=== PATIENT | female | born 1955 | race Caucasian/White ===

== ENCOUNTER 2016-09-11 09:20 | Day surgery (SDC) | payer BC ==
[~2016-09-11 09:20] MED LIST: PROPOFOL INJ 200 MG/20 ML VIAL IV ONE
[2016-09-11 11:04] VITALS: BP 115/60
--- NOTE | 2016-09-11 12:43 | Operative Report ---
Operative Report DATE OF SURGERY: 09/11/16 Operative Report: The risks, benefits and alternatives of the procedure including risks of bleeding, perforation requiring surgery are explained to the patient in detail and informed consent is obtained. Patient is taken back to the endoscopy suite and placed in a left lateral decubital position. Timeout is called. Propofol medications administered. A rectal examination was done which did not reveal any masses, tears or fissures. An Olympus videoscope was inserted into the patient's rectum. Keeping the lumen in site at all times the scope was then gradually advanced all the way to the cecum. The cecum as identified by the usual anatomical landmarks of the ileocecal valve as well as the appendiceal office. Photodocumentation was obtained. Prep is good. The scope was then sequentially pulled back via the rest segments of the colon including the ascending colon, hepatic flexure, transverse colon, splenic flexure, descending colon and finally into the rectosigmoid colon. Retroflexion maneuvers performed. Following the completion of the colonoscopy EGD is performed to follow up for previous ulcer in the stomach. The risks benefits and alternatives of the procedure explained to the patient in detail and informed consent is obtained that GIF Olympus video scope was inserted into the patient's mouth and hypopharynx the esophagus is identified intubated and insufflated the scope was then advanced through the esophagus stomach and duodenum retroflexion maneuver is done the esophagus stomach and first and second portions of the duodenum examined PREOPERATIVE DIAGNOSIS: Gastric ulcer. 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 Healing anastomotic ulcer no further bleeding but Endo Clip still present. Patent small bowel loops. Ascending colon polyp is removed via biopsy forceps. Mild diverticulosis OPERATION: EGD with ablation. Colonoscopy with biopsy SURGEON: TOMMY WATT ANESTHESIA: LMAC TISSUE REMOVED OR ALTERED: Ascending colon polyp retrieved COMPLICATIONS: None. ESTIMATED BLOOD LOSS: none. INTRAOPERATIVE FINDINGS: Curtis's esophagus status post ablation. Status post gastric bypass with anastomotic bleeding ulcer in the past now has resolved but Endo Clip still present. Small bowel loops are normal. Ascending colon polyp. Reticulosis PROCEDURE: Patient tolerated the procedure well. No immediate postprocedure complications are noted. Patient is discharged in good condition. Date of discharge 09/11/2016. Discharge diet: Regular. Discharge activity: Regular. Patient will need follow-up upper endoscopy to document eradication of Curtis' s. Colon surveillance in 3-5 years. Patient does have a 2-3 week follow-up to discuss findings. Patient is instructed to go to the emergency room or call the office should there be any further problems or questions Await on biopsies
== END 2016-09-11 11:05 | disposition home or self-care (01) ==
LOC: END 09:20
PROVIDERS: ATTEND Internal Medicine Gastroenterology
PROC: 0DBK8ZX Excision of Ascending Colon, Via Natural or Artificial Opening Endoscopic, Diagnostic (ICD-10-PCS; principal; 2016-09-11 11:30)
PROC: 0D558ZZ Destruction of Esophagus, Via Natural or Artificial Opening Endoscopic (ICD-10-PCS; 2016-09-11 11:30)
DX: D12.2 Benign neoplasm of ascending colon (principal); K57.30 Diverticulosis of large intestine without perforation or abscess without bleeding; K22.70 Barrett's esophagus without dysplasia; Z87.11 Personal history of peptic ulcer disease; D64.9 Anemia, unspecified; E11.9 Type 2 diabetes mellitus without complications; I10 Essential (primary) hypertension; E78.00 Pure hypercholesterolemia, unspecified; E07.9 Disorder of thyroid, unspecified; Z98.84 Bariatric surgery status; Z79.899 Other long term (current) drug therapy
CPT/HCPCS: 43270; 45380; 82962; 88305 ×2; J2704; 740

== ENCOUNTER 2016-11-05 09:44 | Emergency (ER) | payer BC ==
[2016-11-05] MEDS ORDERED: PANTOPRAZOLE SODIUM 40 MG VIAL IV ONE (09:48)
[2016-11-05] MEDS ORDERED: PANTOPRAZOLE SODIUM 40 MG VIAL IV PRN (09:56)
[2016-11-05 10:15] LABS: ABSOLUTE BASOPHILS # (AUTO) 0.1 10^3/uL (0.0-0.2); ABSOLUTE EOSINOPHILS # (AUTO) 0.1 10^3/uL (0.0-0.6); ABSOLUTE LYMPHOCYTES (AUTO) 1.4 10^3/uL (0.5-4.7); ABSOLUTE MONOCYTES (AUTO) 0.7 10^3/uL (0.1-1.4); ABSOLUTE NEUT (AUTO) 5.2 10^3/uL (1.7-8.2); BASOPHILS % (AUTO) 0.7 % (0-2); EOSINOPHILS % (AUTO) 1.8 % (0-6); HEMOGLOBIN 9.9 g/dL (12.0-15.5); HGB HCT DIFFERENCE -0.3; LYMPHOCYTES % (AUTO) 18.9 % (13-45); MEAN CORPUSCULAR HEMOGLOBIN 27.2 pg (27.0-33.4); MEAN CORPUSCULAR VOLUME 82 fl (80-97); MONOCYTES % (AUTO) 9.5 % (3-13); RED BLOOD COUNT 3.65 10^6/uL (3.72-5.28); RED CELL DISTRIBUTION WIDTH 14.8 % (11.5-14.0); SEGMENTED NEUTROPHILS % (AUTO) 69.1 % (42-78); WHITE BLOOD COUNT 7.5 10^3/uL (4.0-10.5)
[2016-11-05 10:40] LABS: ALANINE AMINOTRANSFERASE 40 U/L (9-52); ALBUMIN 3.3 g/dL (3.5-5.0); ALKALINE PHOSPHATASE 55 U/L (38-126); ANION GAP 10 (5-19); ASPARTATE AMINO TRANSFERASE 30 U/L (14-36); BILIRUBIN,TOTAL 0.4 mg/dL (0.2-1.3); BLOOD UREA NITROGEN 31 mg/dL (7-20); CALCIUM 8.7 mg/dL (8.4-10.2); CARBON DIOXIDE 26 mmol/L (22-30); CHLORIDE 107 mmol/L (98-107); CREATININE RESULT 0.62 mg/dL (0.52-1.25); GLUCOSE 200 mg/dL (75-110); POTASSIUM 4.4 mmol/L (3.6-5.0); SODIUM 142.8 mmol/L (137-145); TOTAL PROTEIN 5.4 g/dL (6.3-8.2)
[2016-11-05 11:43] LABS: PROTHROMBIN TIME 13.6 SEC (11.4-15.4)
[2016-11-05 11:44] LABS: PARTIAL THROMBOPLASTIN TIME 22.8 SEC (23.5-35.8)
[2016-11-05 11:46] LABS: APPEARANCE,URINE CLEAR; BILIRUBIN,URINE NEGATIVE (NEGATIVE); GLUCOSE, URINE NEGATIVE (NEGATIVE); KETONES,URINE NEGATIVE (NEGATIVE); LEUKOCYTE ESTERASE,URINE NEGATIVE (NEGATIVE); NITRITE,URINE NEGATIVE (NEGATIVE); PROTEIN,URINE NEGATIVE (NEGATIVE); URINE SPECIFIC GRAVITY 1.047; UROBILINOGEN,URINE NEGATIVE mg/dL (<2.0)
[2016-11-05] MEDS ORDERED: NORMAL SALINE 1000 ML 1,000 ML IV ONE (12:13)
[2016-11-05] MEDS ORDERED: ONDANSETRON HCL INJ/PF 4 MG/2 ML SDV IV PRN (12:51)
[2016-11-05] MEDS ORDERED: MORPHINE SULFATE 10 MG/ML INJ IV PRN (12:51)
[2016-11-05] MEDS ORDERED: ACETAMINOPHEN 325 MG TABLET PO PRN (12:52)
--- NOTE | 2016-11-05 13:38 | ER Document Report ---
ED General - General Chief Complaint: GI Bleeding Stated Complaint: ABDOMINAL PAIN TRAVEL OUTSIDE OF THE [place] IN LAST 30 DAYS: No - HPI Patient complains to provider of: vomiting blood dark stools Notes: Patient is coming in for vomiting blood and dark stools states dark stools 3. 24 hours with vomiting approximately half cup to one cup of bright red blood no blood clots. Otherwise patient denies any dizziness fevers. Patient states abdominal pain sharp boxer 25 hours prior to arrival now currently dull abdominal pain. Patient does admit to a history of Lydia-en-Y surgery also recent admission for GI bleeding at which time she had a EGD performed showing a bleeding ulcer at anastomosis site. Patient currently mildly pale looking otherwise stable - Related Data Allergies/Adverse Reactions: coconut Allergy (Intermediate, Verified 09/11/16 09:38) THROAT SWELLING, HARD TO BREATHE Past Medical History - Social History Smoking Status: Never Smoker Chew tobacco use (# tins/day): No Frequency of alcohol use: Social Drug Abuse: None Family History: CAD, CVA, DM, Hyperlipidemia, Hypertension, Malignancy, Thyroid Disfunction Patient has suicidal ideation: No Patient has homicidal ideation: No - Past Medical History Cardiac Medical History: Reports: Hx Coronary Artery Disease, Hx Heart Attack - 2012, Hx Hypercholesterolemia, Hx Hypertension Pulmonary Medical History: Reports: Hx Bronchitis Denies: Hx Asthma, Hx COPD, Hx Pneumonia Neurological Medical History: Denies: Hx Cerebrovascular Accident, Hx Seizures Endocrine Medical History: Reports: Hx Diabetes Mellitus Type 1, Hx Diabetes Mellitus Type 2 Renal/ Medical History: Denies: Hx Peritoneal Dialysis GI Medical History: Reports: Hx Gastroesophageal Reflux Disease Musculoskeltal Medical History: Denies Hx Arthritis Psychiatric Medical History: Reports: Hx Depression Past Surgical History: Reports: Hx Bowel Surgery - gastric bypass, Hx Cardiac Catheterization, Hx Cholecystectomy, Hx Coronary Stent - 2001, Hx Gastric Bypass Surgery, Hx Tubal Ligation - Immunizations Immunizations up to date: Yes Hx Diphtheria, Pertussis, Tetanus Vaccination: Yes Hx Pneumococcal Vaccination: 08/27/09 Review of Systems - Review of Systems Constitutional: No symptoms reported EENT: No symptoms reported Cardiovascular: No symptoms reported Respiratory: No symptoms reported Gastrointestinal: Other - Dark stools vomiting blood Genitourinary: No symptoms reported Female Genitourinary: No symptoms reported Musculoskeletal: No symptoms reported Skin: No symptoms reported Hematologic/Lymphatic: No symptoms reported Neurological/Psychological: No symptoms reported Physical Exam - Vital signs Vitals: Temp Pulse Resp BP Pulse Ox 97.7 F 69 20 141/80 H 99 11/05/16 09:52 11/05/16 09:52 11/05/16 09:52 11/05/16 09:52 11/05/16 09:52 Interpretation: Normal - General General appearance: Appears well, Alert - HEENT Head: Normocephalic, Atraumatic Eyes: Normal Pupils: PERRL - Respiratory Respiratory status: No respiratory distress Chest status: Nontender Breath sounds: Normal Chest palpation: Normal - Cardiovascular Rhythm: Regular Heart sounds: Normal auscultation Murmur: No - Abdominal Inspection: Normal Distension: No distension Bowel sounds: Normal Tenderness: Nontender Organomegaly: No organomegaly - Rectal Stool: Heme positive, Black - Back Back: Normal, Nontender - Extremities General upper extremity: Normal inspection, Nontender, Normal color, Normal ROM , Normal temperature General lower extremity: Normal inspection, Nontender, Normal color, Normal ROM , Normal temperature, Normal weight bearing. No: Namita's sign - Neurological Neuro grossly intact: Yes Cognition: Normal Orientation: AAOx4 [place] Coma Scale Eye Opening: Spontaneous [place] Coma Scale Verbal: Oriented Janina Coma Scale Motor: Obeys Commands [place] Coma Scale Total: 15 Speech: Normal Motor strength normal: LUE, RUE, LLE, RLE Sensory: Normal - Psychological Associated symptoms: Normal affect, Normal mood - Skin Skin Temperature: Warm Skin Moisture: Dry Skin Color: Normal Course - Re-evaluation Re-evalutation: 11/05/16 13:[address] Kolb of [facility]. Patient otherwise hemoglobin lab with stable. Patient was started on Protonix drip. At this time will continue to monitor H&H's. Patient was accepted for transfer. Patient previous EGD reports were performed these will be printed out and placed in the patient's chart. The initial EGD showing a ulcer at the anastomosis site with the Endo Clip unsuccessful placed by surgery with resolution of bleeding after injection of epinephrine does mention possible need for embolization if rebleeding occurs. CT scan shows no signs of free air signs of perforation - Vital Signs Vital signs: Temp Pulse Resp BP Pulse Ox 97.7 F 69 12 129/68 H 99 11/05/16 09:52 11/05/16 09:52 11/05/16 12:01 11/05/16 12:01 11/05/16 12:01 - Laboratory Result Diagrams: 11/05/16 09:50 11/05/16 09:50 Laboratory results interpreted by me: 11/05/16 11/05/16 11/05/16 09:50 09:50 09:50 RBC 3.65 L Hgb 9.9 L Hct 30.0 L RDW 14.8 H APTT 22.8 L BUN 31 H Glucose 200 H Total Protein 5.4 L Albumin 3.3 L Critical Care Note - Critical Care Note Total time excluding time spent on procedures (mins): 35 Comments: Multiple evaluation patient with GI bleed Discharge - Discharge Clinical Impression: H/O gastric bypass, Melena, Bleeding acute gastric ulcer Condition: Good Disposition: [facility]
[2016-11-05 15:38] LABS: HEMATOCRIT 28.9 % (36.0-47.0); HEMOGLOBIN 9.6 g/dL (12.0-15.5); HGB HCT DIFFERENCE -0.1; MEAN CORPUSCULAR HGB CONC 33.2 g/dL (32.0-36.0); MEAN CORPUSCULAR VOLUME 81 fl (80-97); RED BLOOD COUNT 3.55 10^6/uL (3.72-5.28); RED CELL DISTRIBUTION WIDTH 14.8 % (11.5-14.0); WHITE BLOOD COUNT 6.6 10^3/uL (4.0-10.5)
[2016-11-05] MEDS ORDERED: CARVEDILOL 12.5 MG TABLET PO ONE (15:41)
[2016-11-05] MEDS ORDERED: LISINOPRIL 10 MG TABLET PO ONE (15:43)
[2016-11-05] MEDS ORDERED: LEVOTHYROXINE SODIUM 0.1 MG TABLET PO ONE (15:44)
--- NOTE | 2016-11-05 20:09 | EKG REPORT ---
SEVERITY:- NORMAL ECG - SINUS RHYTHM : Confirmed by: Rosalia Daniels 05-Nov-2016 20:09:19
[2016-11-05 20:10] LABS: ABSOLUTE EOSINOPHILS # (AUTO) 0.1 10^3/uL (0.0-0.6); ABSOLUTE LYMPHOCYTES (AUTO) 1.3 10^3/uL (0.5-4.7); ABSOLUTE MONOCYTES (AUTO) 0.5 10^3/uL (0.1-1.4); ABSOLUTE NEUT (AUTO) 3.3 10^3/uL (1.7-8.2); BASOPHILS % (AUTO) 0.5 % (0-2); HEMATOCRIT 27.2 % (36.0-47.0); HEMOGLOBIN 8.9 g/dL (12.0-15.5); HGB HCT DIFFERENCE -0.5; LYMPHOCYTES % (AUTO) 25.3 % (13-45); MEAN CORPUSCULAR HEMOGLOBIN 26.7 pg (27.0-33.4); MEAN CORPUSCULAR HGB CONC 32.6 g/dL (32.0-36.0); MEAN CORPUSCULAR VOLUME 82 fl (80-97); MONOCYTES % (AUTO) 10.2 % (3-13); RED BLOOD COUNT 3.33 10^6/uL (3.72-5.28); RED CELL DISTRIBUTION WIDTH 14.7 % (11.5-14.0); WHITE BLOOD COUNT 5.2 10^3/uL (4.0-10.5)
[2016-11-06] MEDS ORDERED: PANTOPRAZOLE SODIUM 40 MG VIAL IV PRN (01:27)
[2016-11-06] MEDS ORDERED: NORMAL SALINE 1000 ML 1,000 ML IV ONE (01:28)
--- NOTE | 2016-11-06 02:18 | ER Document Report ---
Doctor's Note Notes: 11/06/16 02:15 This 61-year-old female with upper GI bleed was turned over to me about 1500 today. She has remained stable throughout my shift. Serial CBCs showed a very slight downward trend in her hemoglobin. An H&H was ordered for 2:00 AM which is 6 hours after the last one. I do not believe it has been drawn yet. IV fluids were started as she remains nothing by mouth. An additional Protonix drip was ordered to follow the first one. At this point damichaela reports they still do not have a bed for this patient. Patient's care is turned over to Dr. Gomez at this time.
[2016-11-06 03:59] LABS: HEMATOCRIT 25.7 % (36.0-47.0); HEMOGLOBIN 8.5 g/dL (12.0-15.5); HGB HCT DIFFERENCE -0.2; MEAN CORPUSCULAR HEMOGLOBIN 27.3 pg (27.0-33.4); MEAN CORPUSCULAR HGB CONC 32.9 g/dL (32.0-36.0); MEAN CORPUSCULAR VOLUME 83 fl (80-97); RED BLOOD COUNT 3.11 10^6/uL (3.72-5.28); WHITE BLOOD COUNT 4.4 10^3/uL (4.0-10.5)
[2016-11-06] MEDS ORDERED: DEXTROSE 5%-1/2 NORMAL SALINE 1,000 ML IV ONE (11:00)
[2016-11-06 11:16] LABS: ABSOLUTE EOSINOPHILS # (AUTO) 0.1 10^3/uL (0.0-0.6); ABSOLUTE LYMPHOCYTES (AUTO) 1.1 10^3/uL (0.5-4.7); ABSOLUTE MONOCYTES (AUTO) 0.4 10^3/uL (0.1-1.4); ABSOLUTE NEUT (AUTO) 2.2 10^3/uL (1.7-8.2); BASOPHILS % (AUTO) 0.9 % (0-2); EOSINOPHILS % (AUTO) 2.5 % (0-6); HEMATOCRIT 26.3 % (36.0-47.0); HEMOGLOBIN 8.7 g/dL (12.0-15.5); HGB HCT DIFFERENCE -0.2; LYMPHOCYTES % (AUTO) 29.5 % (13-45); MEAN CORPUSCULAR VOLUME 82 fl (80-97); MONOCYTES % (AUTO) 9.5 % (3-13); RED CELL DISTRIBUTION WIDTH 14.9 % (11.5-14.0); SEGMENTED NEUTROPHILS % (AUTO) 57.6 % (42-78); WHITE BLOOD COUNT 3.8 10^3/uL (4.0-10.5)
[2016-11-06 11:32] LABS: ANION GAP 8 (5-19); BLOOD UREA NITROGEN 17 mg/dL (7-20); CALCIUM 8.7 mg/dL (8.4-10.2); CARBON DIOXIDE 23 mmol/L (22-30); CHLORIDE 109 mmol/L (98-107); CREATININE RESULT 0.51 mg/dL (0.52-1.25); GLUCOSE 105 mg/dL (75-110); POTASSIUM 3.3 mmol/L (3.6-5.0)
[2016-11-06] MEDS: PANTOPRAZOLE SODIUM 40 MG VIAL IV PRN ×2 (11:42→23:15)
[2016-11-06] MEDS ORDERED: POTASSIUM CHLORIDE 10 MEQ TABLET.SA PO ONE (14:06)
--- NOTE | 2016-11-06 17:07 | ER Document Report ---
Doctor's Note Notes: 11/06/16 17:04 Patient was reevaluated multiple times today. Patient remained stable. Blood pressure heart rate remained stable. Patient's abdomen still nontender no signs of surgical process. Patient continues to have ice chips. Hemoglobin at this time has stabilized no need for transfusion. I did discuss with [facility]. Patient more likely will be waiting for another 24 hours for transfer. Patient is still requesting to only be transferred to [facility]. I did discuss with patient possibility of being seen by GI tomorrow as that I have been told that we have GI on the . Will continue to repeat CBCs. Patient will continue on Protonix drip. Patient will also continue on D5 half-normal saline
[2016-11-06 19:52] LABS: ANION GAP 6 (5-19); BLOOD UREA NITROGEN 10 mg/dL (7-20); CALCIUM 8.7 mg/dL (8.4-10.2); CARBON DIOXIDE 23 mmol/L (22-30); CHLORIDE 108 mmol/L (98-107); CREATININE RESULT 0.52 mg/dL (0.52-1.25); GLUCOSE 120 mg/dL (75-110); POTASSIUM 3.5 mmol/L (3.6-5.0)
[2016-11-06 19:57] LABS: HEMOGLOBIN 8.5 g/dL (12.0-15.5); HGB HCT DIFFERENCE 0.5; MEAN CORPUSCULAR HEMOGLOBIN 27.4 pg (27.0-33.4); MEAN CORPUSCULAR HGB CONC 33.8 g/dL (32.0-36.0); MEAN CORPUSCULAR VOLUME 81 fl (80-97); RED BLOOD COUNT 3.09 10^6/uL (3.72-5.28); RED CELL DISTRIBUTION WIDTH 14.8 % (11.5-14.0); WHITE BLOOD COUNT 3.9 10^3/uL (4.0-10.5)
[2016-11-07 00:29] LABS: HEMATOCRIT 24.1 % (36.0-47.0); HEMOGLOBIN 8.2 g/dL (12.0-15.5); HGB HCT DIFFERENCE 0.5; MEAN CORPUSCULAR HEMOGLOBIN 27.3 pg (27.0-33.4); MEAN CORPUSCULAR VOLUME 80 fl (80-97); RED CELL DISTRIBUTION WIDTH 14.6 % (11.5-14.0); WHITE BLOOD COUNT 3.4 10^3/uL (4.0-10.5)
[2016-11-07] MEDS ORDERED: LEVOTHYROXINE SODIUM 0.088 MG TABLET PO SCH (06:00)
--- NOTE | 2016-11-07 06:54 | ER Document Report ---
Doctor's Note Notes: 11/07/16 06:53 I reevaluated the patient. She continues to look well and had no further complaints. She continues to not have any further vomiting of blood. Her stool has cleared over last 12 hours. Her hemoglobin has remained stable. They 're still not available at [facility]. We do have a GI physician, coming on this morning. I will call him to see if he is able to perform evaluation and possible endoscopy here so that patient no longer has to wait for transfer. 11/07/16 07:36 I was able to get in touch with Dr. Mora, patient's GI physician. He says that the patient's ankle has remained stable and she's had no further vomiting of blood and her stools have returned to normal color than she is probably stable to be discharged and he would follow her up very closely in his office. He would talk to her about arranging for outpatient scope with the specialist in [place] to look at her anastomosis further. I did talk to the patient about this. I did give her the option of possibly going home versus staying in the ER longer to continue to wait for a bed at [facility]. Again there is no indication that we will be getting a bed at [facility] anytime soon. Patient says that she does not want to wait any longer and is agreeable with plan to follow-up with Dr. Mora. She agrees to return to the ER immediately if she has any recurrent vomiting of blood, any dark stools, any pain, or any further concerns. She strongly encouraged to avoid all foods that could cause potential irritation to the stomach lining such as wine, coffee, tea, spicy foods. She's encouraged to follow a very bland diet. I informed her to continue to take the Prilosec. Patient's vital signs are completely normal. Her hemoglobin has remained stable. She looks very well and exam. She does want to go home at this time. I do think this is okay. I informed her to call Dr. Mora's office this morning. She is agreeable to plan will be discharged home. Dictation of this chart was performed using voice recognition software; therefore, there may be some unintended grammatical errors.
[2016-11-07] MEDS ORDERED: LEVOTHYROXINE SODIUM 0.088 MG TABLET ONE (07:07)
[2016-11-07 08:37] VITALS: BP 149/61
[2016-11-07] MEDS ORDERED: ISOSORBIDE MONONITRATE 30 MG TAB.ER.24H PO SCH (10:00)
[2016-11-07] MEDS ORDERED: ESCITALOPRAM OXALATE 10 MG TABLET PO SCH (10:00)
[2016-11-07] MEDS ORDERED: CARVEDILOL 12.5 MG TABLET PO SCH (10:00)
[2016-11-07] MEDS ORDERED: MULTIVITAMIN TABLET PO SCH (10:00)
[2016-11-07] MEDS ORDERED: FERROUS SULFATE 325 MG TABLET PO SCH (10:00)
[2016-11-07] MEDS ORDERED: LISINOPRIL 10 MG TABLET PO SCH (10:00)
[2016-11-07] MEDS ORDERED: CYANOCOBALAMIN (VITAMIN B-12) 1,000 MCG TABLET PO SCH (10:00)
[2016-11-07] MEDS ORDERED: ATORVASTATIN CALCIUM 40 MG TABLET PO SCH (22:00)
== END 2016-11-07 08:32 | disposition home or self-care (01) ==
LOC: ER 09:44
DX: K25.0 Acute gastric ulcer with hemorrhage (principal); K92.1 Melena; Z98.84 Bariatric surgery status
CPT/HCPCS: 93005; 96376; 99291; 96365; 96366; 86900; 86901; 36415; 86850; 83690; 85025; 85027; 85610; 85730; 82272; 80048; 80053; 81001; 74177; 93010; S0164 ×2; J7030 ×2

== ENCOUNTER → 2016-11-20 | Outpatient (CLI) | payer BC ==
--- NOTE | 2016-11-20 16:04 | EKG REPORT ---
SEVERITY:- NORMAL ECG - SINUS RHYTHM : Confirmed by: Rosalia Daniels 20-Nov-2016 16:03:38
[2016-11-20 16:47] LABS: ABSOLUTE EOSINOPHILS # (AUTO) 0.1 10^3/uL (0.0-0.6); ABSOLUTE MONOCYTES (AUTO) 0.7 10^3/uL (0.1-1.4); ABSOLUTE NEUT (AUTO) 3.7 10^3/uL (1.7-8.2); BASOPHILS % (AUTO) 0.6 % (0-2); EOSINOPHILS % (AUTO) 2.1 % (0-6); HEMATOCRIT 31.5 % (36.0-47.0); HEMOGLOBIN 10.5 g/dL (12.0-15.5); LYMPHOCYTES % (AUTO) 17.4 % (13-45); MEAN CORPUSCULAR HEMOGLOBIN 27.6 pg (27.0-33.4); MEAN CORPUSCULAR HGB CONC 33.4 g/dL (32.0-36.0); MEAN CORPUSCULAR VOLUME 83 fl (80-97); MONOCYTES % (AUTO) 12.5 % (3-13); RED BLOOD COUNT 3.81 10^6/uL (3.72-5.28); SEGMENTED NEUTROPHILS % (AUTO) 67.4 % (42-78); WHITE BLOOD COUNT 5.5 10^3/uL (4.0-10.5)
[2016-11-20 17:09] LABS: ALANINE AMINOTRANSFERASE 31 U/L (9-52); ALKALINE PHOSPHATASE 74 U/L (38-126); ANION GAP 15 (5-19); ASPARTATE AMINO TRANSFERASE 27 U/L (14-36); BILIRUBIN,DIRECT 0.2 mg/dL (0.0-0.4); BILIRUBIN,TOTAL 0.7 mg/dL (0.2-1.3); BLOOD UREA NITROGEN 17 mg/dL (7-20); CALCIUM 9.4 mg/dL (8.4-10.2); CARBON DIOXIDE 27 mmol/L (22-30); CHLORIDE 102 mmol/L (98-107); CREATININE RESULT 0.59 mg/dL (0.52-1.25); GLUCOSE 103 mg/dL (75-110); SODIUM 143.5 mmol/L (137-145); TOTAL PROTEIN 6.4 g/dL (6.3-8.2)
== END ==
LOC: OD 15:12
PROVIDERS: ATTEND Orthopaedic Surgery
DX: C11.2 Malignant neoplasm of lateral wall of nasopharynx (principal); I10 Essential (primary) hypertension
CPT/HCPCS: 36415; 71020; 80053; 85025; 87070; 93005; 93010

== ENCOUNTER 2016-12-25 06:50 | Day surgery (SDC) | payer BC ==
[2016-12-25] MEDS ORDERED: PROPOFOL INJ 200 MG/20 ML VIAL IV ONE (07:20)
[2016-12-25 08:58] VITALS: BP 152/73
--- NOTE | 2016-12-25 11:34 | Operative Report ---
Operative Report DATE OF SURGERY: 12/25/16 Operative Report: The risks benefits and alternatives of the procedure explained to the patient in detail and informed consent is obtained that GIF Olympus video scope was inserted into the patient's mouth and hypopharynx the esophagus is identified intubated and insufflated the scope was then advanced through the esophagus stomach and duodenum retroflexion maneuver is done the esophagus stomach and first and second portions of the duodenum examined PREOPERATIVE DIAGNOSIS: History of previous anastomotic bleeding ulcer. Curtis 's esophagus was previous treatment POSTOPERATIVE DIAGNOSIS: Healed anastomotic ulcer. afferent and efferent loops are normal. Small island of Curtis's esophagus status post ablation OPERATION: EGD with ablation SURGEON: TOMMY WATT ANESTHESIA: LMAC TISSUE REMOVED OR ALTERED: None. COMPLICATIONS: None. ESTIMATED BLOOD LOSS: none. INTRAOPERATIVE FINDINGS: As described above. PROCEDURE: She tolerated the procedure well. No immediate postprocedure complications are noted. Patient is discharged in good condition. Discharge date 12/25/2016. Discharge diet: Regular. Discharge activity: Regular. Follow-up in 1 week. May want to hold off on surgery Patient is instructed to call the office or proceed to the emergency room should there be any further problems or questions.
== END 2016-12-25 09:00 | disposition home or self-care (01) ==
LOC: END 06:50
PROVIDERS: ATTEND Internal Medicine Gastroenterology
PROC: 0D558ZZ Destruction of Esophagus, Via Natural or Artificial Opening Endoscopic (ICD-10-PCS; principal; 2016-12-25 08:00)
DX: K22.719 Barrett's esophagus with dysplasia, unspecified (principal); I25.10 Atherosclerotic heart disease of native coronary artery without angina pectoris; I10 Essential (primary) hypertension; E11.9 Type 2 diabetes mellitus without complications; I25.2 Old myocardial infarction; Z87.891 Personal history of nicotine dependence
CPT/HCPCS: 43270; J2704; 740

== ENCOUNTER 2017-03-07 12:47 | Observation (INO) | payer BC ==
--- NOTE | 2017-03-07 13:10 | EKG REPORT ---
SEVERITY:- ABNORMAL ECG - SINUS BRADYCARDIA BORDERLINE R WAVE PROGRESSION, ANTERIOR LEADS NONSPECIFIC T ABNORMALITIES, INFERIOR LEADS : Confirmed by: Robert eFrrell MD 07-Mar-2017 13:09:41
[2017-03-07] MEDS ORDERED: ASPIRIN 81 MG TABLET, CHEWABLE PO ONE (14:03)
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
[2017-03-07 14:37] LABS: ABSOLUTE BASOPHILS # (AUTO) 0.1 10^3/uL (0.0-0.2); ABSOLUTE EOSINOPHILS # (AUTO) 0.2 10^3/uL (0.0-0.6); ABSOLUTE LYMPHOCYTES (AUTO) 1.1 10^3/uL (0.5-4.7); ABSOLUTE MONOCYTES (AUTO) 0.5 10^3/uL (0.1-1.4); ABSOLUTE NEUT (AUTO) 2.8 10^3/uL (1.7-8.2); BASOPHILS % (AUTO) 1.1 % (0-2); EOSINOPHILS % (AUTO) 4.3 % (0-6); HEMATOCRIT 37.5 % (36.0-47.0); HEMOGLOBIN 11.9 g/dL (12.0-15.5); HGB HCT DIFFERENCE -1.8; LYMPHOCYTES % (AUTO) 23.8 % (13-45); MEAN CORPUSCULAR HEMOGLOBIN 25.6 pg (27.0-33.4); MEAN CORPUSCULAR HGB CONC 31.8 g/dL (32.0-36.0); MEAN CORPUSCULAR VOLUME 81 fl (80-97); RED BLOOD COUNT 4.66 10^6/uL (3.72-5.28); RED CELL DISTRIBUTION WIDTH 16.2 % (11.5-14.0); SEGMENTED NEUTROPHILS % (AUTO) 59.8 % (42-78); WHITE BLOOD COUNT 4.7 10^3/uL (4.0-10.5)
[2017-03-07 14:42] LABS: ALANINE AMINOTRANSFERASE 29 U/L (9-52); ALBUMIN 4.1 g/dL (3.5-5.0); ALKALINE PHOSPHATASE 92 U/L (38-126); ANION GAP 8 (5-19); ASPARTATE AMINO TRANSFERASE 19 U/L (14-36); BILIRUBIN,DIRECT 0.2 mg/dL (0.0-0.4); BILIRUBIN,TOTAL 0.7 mg/dL (0.2-1.3); BLOOD UREA NITROGEN 11 mg/dL (7-20); CALCIUM 9.4 mg/dL (8.4-10.2); CARBON DIOXIDE 29 mmol/L (22-30); CHLORIDE 104 mmol/L (98-107); CREATININE RESULT 0.61 mg/dL (0.52-1.25); GLUCOSE 101 mg/dL (75-110); POTASSIUM 4.2 mmol/L (3.6-5.0); SODIUM 140.8 mmol/L (137-145); TOTAL PROTEIN 6.7 g/dL (6.3-8.2)
--- NOTE | 2017-03-07 15:46 | ER Document Report ---
ED Cardiac - General Mode of Arrival: Ambulatory Information source: Patient TRAVEL OUTSIDE OF THE [place] IN LAST 30 DAYS: No <JAYLEEN GOOD - Last Filed: 03/07/17 23:25> <ROSALBA KIM - Last Filed: 03/08/17 00:44> - General Chief Complaint: Chest Pain Stated Complaint: CHEST PAIN Time Seen by Provider: 03/07/17 13:33 Notes: Patient is a 61-year-old female that presents to the emergency department today with complaints of chest pain for the last 2 months. Patient states she has had chest pain nearly every day during this time. Patient states the pain has been relieved daily with 1-2 nitroglycerin. Patient states she had an [place] 4 years ago and has had approximately 5 cardiac catheterizations in the past with the last one being within 5 years. Patient states she had stents placed in 2001. Patient states approximately a week and a half ago she was riding bikes when she developed an increased heart rate, shortness of breath, and syncope. Patient states that "sweets" and exertion seem to bring about her chest pain. Patient states the pain "sometimes" radiates into her jaw, throat, and left arm. Patient denies nausea with her chest pain. (JAYLEEN GOOD) - Related Data Allergies/Adverse Reactions: coconut Allergy (Intermediate, Verified 03/07/17 13:08) THROAT SWELLING, HARD TO BREATHE Home Medications: Current Home Medications Aspirin [Aspirin 81 mg Chewable Tablet] 81 mg PO DAILY 03/07/17 [History] Atorvastatin Calcium [Lipitor 40 mg Tablet] 40 mg PO QHS 03/07/17 [History] Carvedilol [Coreg 12.5 mg Tablet] 12.5 mg PO Q12 03/07/17 [History] Clopidogrel Bisulfate [Plavix 75 mg Tablet] 75 mg PO DAILY 03/07/17 [History] Cyanocobalamin (Vitamin B-12) [B-12] 5,000 mcg PO DAILY 03/07/17 [History] Escitalopram Oxalate [Lexapro 10 mg Tablet] 10 mg PO DAILY 03/07/17 [History] Ferrous Sulfate [Feosol 325 mg Tablet] 325 mg PO DAILY 03/07/17 [History] Isosorbide Mononitrate [Imdur 30 mg Tablet.er] 30 mg PO DAILY 03/07/17 [History] Levothyroxine Sodium [Synthroid 0.088 mg Tablet] 88 mcg PO DAILY 03/07/17 [ History] Lisinopril [Prinivil 40 mg Tablet] 40 mg PO DAILY 03/07/17 [History] Multivitamin [Daily Multiple Vitamin] 1 each PO DAILY 03/07/17 [History] Past Medical History - General Information source: Patient, [facility] Records - Social History Smoking Status: Former Smoker Chew tobacco use (# tins/day): No Frequency of alcohol use: Occasional Drug Abuse: None Lives with: Family Family History: Reviewed & Not Pertinent, CAD, CVA, DM, Hyperlipidemia, Hypertension, Malignancy, Thyroid Disfunction Patient has suicidal ideation: No Patient has homicidal ideation: No - Past Medical History Cardiac Medical History: Reports: Hx Coronary Artery Disease, Hx Heart Attack, Hx Hypercholesterolemia, Hx Hypertension Endocrine Medical History: Reports: Hx Diabetes Mellitus Type 2 GI Medical History: Reports: Hx Gastroesophageal Reflux Disease Psychiatric Medical History: Reports: Hx Depression Past Surgical History: Reports: Hx Bowel Surgery - gastric bypass, Hx Cardiac Catheterization, Hx Cholecystectomy, Hx Coronary Stent - 2001, Hx Gastric Bypass Surgery, Hx Tubal Ligation - Immunizations Immunizations up to date: Yes Hx Diphtheria, Pertussis, Tetanus Vaccination: Yes Hx Pneumococcal Vaccination: 08/27/09 <JAYLEEN GOOD - Last Filed: 03/07/17 23:25> Review of Systems - Review of Systems Constitutional: No symptoms reported EENT: No symptoms reported Cardiovascular: See HPI, Chest pain Respiratory: No symptoms reported Gastrointestinal: denies: Nausea Genitourinary: No symptoms reported Female Genitourinary: No symptoms reported Musculoskeletal: No symptoms reported Skin: No symptoms reported Hematologic/Lymphatic: No symptoms reported Neurological/Psychological: No symptoms reported -: Yes All other systems reviewed and negative <JAYLEEN GOOD - Last Filed: 03/07/17 23:25> Physical Exam <JAYLEEN GOOD - Last Filed: 03/07/17 23:25> <ROSALBA KIM - Last Filed: 03/08/17 00:44> - Vital signs Vitals: Temp Pulse Resp BP Pulse Ox 98.4 F 50 L 18 165/75 H 99 03/07/17 13:06 03/07/17 13:06 03/07/17 13:06 03/07/17 13:06 03/07/17 13:06 - Notes Notes: Physical Exam: General: Alert, appears well. HEENT: Normocephalic. Atraumatic. PERRL. Extraocular movements intact. Oropharynx clear. Neck: Supple. Non-tender. Respiratory: No respiratory distress. Clear and equal breath sounds bilaterally. Cardiovascular: Regular rate and rhythm. Abdominal: Normal Inspection. Non-tender. No distension. Normal Bowel Sounds. Back: Non-tender. No deformity or step off. Extremities: Moves all four extremities. Upper extremities: Normal inspection. Normal ROM. Lower extremities: Normal inspection. No edema. Normal ROM. Neurological: Normal cognition. AAOx4. Normal speech. Psychological: Normal affect. Normal Mood. Skin: Warm. Dry. Normal color. (JAYLEEN GOOD) Course - Laboratory Result Diagrams: 03/07/17 14:13 03/07/17 14:13 - Consults Cardiology Time consulted: 17:09 Consulted provider: other - Spoke with Dr. Mccormick, he will call back <JAYLEEN GOOD - Last Filed: 03/07/17 23:25> - Laboratory Result Diagrams: 03/07/17 14:13 03/07/17 14:13 <ROSALBA KIM - Last Filed: 03/08/17 00:44> - Re-evaluation Re-evalutation: 03/07 Patient is a 61-year-old female with a history of coronary artery disease who comes in complaining of chest pain. Patient has T-wave inversion on EKG. Discussed with cardiology. Patient will be held for observation. Patient agrees with this plan. Stable time of admission. No active chest pain here in the emergency department. (ROSALBA KIM) - Vital Signs Vital signs: Temp Pulse Resp BP Pulse Ox 97.9 F 50 L 16 150/68 H 96 03/07/17 23:53 03/07/17 23:53 03/07/17 23:53 03/07/17 23:53 03/07/17 23:53 - Laboratory Laboratory results interpreted by me: 03/07/17 14:13 Hgb 11.9 L MCH 25.6 L MCHC 31.8 L RDW 16.2 H Discharge <JAYLEEN GOOD - Last Filed: 03/07/17 23:25> - Discharge Admitting Provider: [facility] Unit Admitted: Telemetry <ROSALBA KIM - Last Filed: 03/08/17 00:44> - Discharge Clinical Impression: Chest pain Qualifiers: Chest pain type: unspecified Qualified Code(s): R07.9 - Chest pain, unspecified Condition: Stable Disposition: ADMITTED OBSERVATION Scribe Attestation: 03/08/17 00:44 I personally performed the services described in the documentation, reviewed and edited the documentation which was dictated to the scribe in my presence, and it accurately records my words and actions. (ROSALBA KIM) Scribe Documentation - Scribe Written by Oziel:: Oziel Knapp, 03/07/2017 1658 acting as scribe for :: Aide <JAYLEEN GOOD - Last Filed: 03/07/17 23:25>
--- NOTE | 2017-03-07 16:00 | RADIOLOGY REPORT (SQ) ---
EXAM DESCRIPTION: CHEST SINGLE VIEW COMPLETED DATE/TIME: 03/07/2017 2:31 pm REASON FOR STUDY: cp COMPARISON: 08/02/2016 EXAM PARAMETERS: NUMBER OF VIEWS: One view. TECHNIQUE: Single frontal radiographic view of the chest acquired. RADIATION DOSE: NA LIMITATIONS: None. FINDINGS: LUNGS AND PLEURA: No opacities, masses or pneumothorax. No pleural effusion. MEDIASTINUM AND HILAR STRUCTURES: No masses. Contour normal. HEART AND VASCULAR STRUCTURES: Heart normal in size. Normal vasculature. BONES: No acute findings. HARDWARE: None in the chest. OTHER: No other significant finding. IMPRESSION: NO ACUTE RADIOGRAPHIC FINDING IN THE CHEST. TECHNICAL DOCUMENTATION: JOB ID: [id number]
[2017-03-07] MEDS ORDERED: NITROGLYCERIN 0.4 MG/TAB 25 TAB/BOTTLE SL PRN (18:38)
[2017-03-07] MEDS ORDERED: ONDANSETRON HCL INJ/PF 4 MG/2 ML SDV IV PRN (18:38)
[2017-03-07] MEDS ORDERED: MORPHINE SULFATE 10 MG/ML INJ IV PRN (18:38)
--- NOTE | 2017-03-07 18:59 | PDOC H&P ---
History of Present Illness Admission Date/PCP: SHARAD GLEASON Patient complains of: chest pain for one month History of Present Illness: ANUPAM PEACE is a 61 year old female presents to the eD from home with one month hx of progressive and worsening substernal chest pain described as unbearable squeezing in the center of her chest radiating into left jaw and arm , lasting minutes, relieved with nitro, no exac factors and asct'd with PALACIO, NT left fingers, diaphoresis but no N/V or epigastric pain. occasionally asct'd with palpitations and sense of racing heart. had one episode 2 wks ago where she became lightheaded and passed out for 1-2 minutes but did not seek medical attention. she has significant cardiac and GI history with stent to LAD 2001 and repeat cath 2012 showed distal small vessel disease not amenable to stenting. she had to stop her ASA/plavix in 07/2016 due to gastric ulcer that formed at her gastric bypass anastomosis that repeat endoscopy by dr delgado in 10/2016 proved was healed. when her chest pain started 1-2 months ago she resumed her asa/ plavix on her own. eval in ED shows neg Won but nonspecific changes on ecg when compared to 10/2016 and given her risk factors we were asked to admit for further eval and management. she is curently chest pain free Past Medical History Cardiac Medical History: Reports: Coronary Artery Disease, Myocardial Infarction , Hyperlipidema, Hypertension Pulmonary Medical History: Denies: Asthma, Bronchitis, Chronic Obstructive Pulmonary Disease (COPD), Pneumonia Neurological Medical History: Denies: Seizures Endocrine Medical History: Reports: Diabetes Mellitus Type 1, Diabetes Mellitus Type 2 GI Medical History: Reports: Gastroesophageal Reflux Disease Musculoskeltal Medical History: Denies: Arthritis Psychiatric Medical History: Reports: Depression Hematology: Denies: Anemia Past Surgical History Past Surgical History: Reports: Cardiac Catheterization, Cholecystectomy, Coronary Stent - 2001, Gastric Bypass Surgery, Tubal Ligation Social History Lives with: Family Smoking Status: Former Smoker - quit in 2001 after 27 years Frequency of Alcohol Use: Social Hx Recreational Drug Use: No Hx Prescription Drug Abuse: No - Advance Directive Resuscitation Status: Full Code Family History Family History: CAD, CVA, DM, Hyperlipidemia, Hypertension, Malignancy, Thyroid Disfunction Parental Family History Reviewed: Yes Children Family History Reviewed: Yes Sibling(s) Family History Reviewed.: Yes Medication/Allergy Home Medications: Atorvastatin Calcium 40 mg PO DAILY 11/06/16 Carvedilol 12.5 mg PO BID 11/06/16 Cyanocobalamin (Vitamin B-12) [Vitamin B12] 5,000 mcg PO DAILY 11/06/16 Escitalopram Oxalate 10 mg PO DAILY 11/06/16 Ferrous Sulfate [Feosol] 325 mg PO DAILY 11/06/16 Folic Acid/Multivit-Min/Lutein [Centrum Silver Chewable Tablet] 1 each PO DAILY 11/06/16 Isosorbide Mononitrate [Isosorbide Mononitrate ER] 30 mg PO DAILY 11/06/16 Levothyroxine Sodium [Synthroid 0.088 mg Tablet] 0.088 mg PO DAILY 11/06/16 Lisinopril 40 mg PO DAILY 11/06/16 [place]-3 Fatty Acids [Fish Oil] 300 mg PO BID 11/06/16 Ubidecarenone [Co Q10] 100 mg PO DAILY 11/06/16 Allergies/Adverse Reactions: coconut Allergy (Intermediate, Verified 03/07/17 13:08) THROAT SWELLING, HARD TO BREATHE Review of Systems All systems: reviewed and no additional remarkable complaints except as stated - all systems reviewed, see HPI, remainig systems negative Physical Exam Vital Signs: Temp Pulse Resp BP Pulse Ox 98.4 F 50 L 18 165/75 H 99 03/07/17 13:06 03/07/17 13:06 03/07/17 13:06 03/07/17 13:06 03/07/17 13:06 Intake & Output 03/06/17 03/07/17 03/08/17 06:59 06:59 06:59 Weight 61.9 kg General appearance: PRESENT: no acute distress, well-developed, well-nourished Head exam: PRESENT: atraumatic, normocephalic Eye exam: PRESENT: EOMI. ABSENT: conjunctival injection, scleral icterus Mouth exam: PRESENT: moist, neck supple Neck exam: PRESENT: full ROM. ABSENT: JVD, lymphadenopathy, tenderness Respiratory exam: PRESENT: clear to auscultation chetna. ABSENT: accessory muscle use Cardiovascular exam: PRESENT: irregular rhythm - burst of rapid irregular rhythm during my exam that spontaneously resolved, she was not on monitor at the time. ABSENT: diastolic murmur, systolic murmur Pulses: PRESENT: normal radial pulses, normal dorsalis pedis pul Vascular exam: PRESENT: normal capillary refill GI/Abdominal exam: PRESENT: normal bowel sounds, soft. ABSENT: organolmegaly, tenderness Extremities exam: ABSENT: calf tenderness, pedal edema Musculoskeletal exam: PRESENT: ambulatory, full ROM Neurological exam: PRESENT: alert, awake, oriented to person, oriented to place , oriented to time Psychiatric exam: PRESENT: appropriate affect, normal mood Skin exam: PRESENT: dry, warm Results Laboratory Results: 03/07/17 14:13 03/07/17 14:13 03/07/17 03/07/17 14:13 14:13 WBC 4.7 RBC 4.66 Hgb 11.9 L Hct 37.5 MCV 81 MCH 25.6 L MCHC 31.8 L RDW 16.2 H Plt Count 189 Seg Neutrophils % 59.8 Lymphocytes % 23.8 Monocytes % 11.0 Eosinophils % 4.3 Basophils % 1.1 Absolute Neutrophils 2.8 Absolute Lymphocytes 1.1 Absolute Monocytes 0.5 Absolute Eosinophils 0.2 Absolute Basophils 0.1 Sodium 140.8 Potassium 4.2 Chloride 104 Carbon Dioxide 29 Anion Gap 8 BUN 11 Creatinine 0.61 Est GFR ( Amer) > 60 Est GFR (Non-Af Amer) > 60 Glucose 101 Calcium 9.4 Total Bilirubin 0.7 AST 19 ALT 29 Alkaline Phosphatase 92 Total Protein 6.7 Albumin 4.1 03/07/17 14:13 Troponin I < 0.012 Impressions: Chest X-Ray 03/07/17 13:34 IMPRESSION: NO ACUTE RADIOGRAPHIC FINDING IN THE CHEST. Status: Image reviewed by me - no widened mediastinum, no acute pathology Assessment & Plan - Diagnosis (1) Chest pain Qualifiers: Chest pain type: unspecified Qualified Code(s): R07.9 - Chest pain, unspecified Is this a current diagnosis for this admission?: YesPlan: possibly unstable angina due to escalating symptoms; admit for serial Won and morning stress test and cardiac consult. resume home regimen once confirmed for her chronic medical conditions (2) CAD (coronary artery disease) Qualifiers: Coronary Disease-Associated Artery/Lesion type: [place] artery [place] vs. transplanted heart: [place] heart Associated angina: with other forms of angina Qualified Code(s): I25.118 - Atherosclerotic heart disease of [place] coronary artery with other forms of angina pectoris Is this a current diagnosis for this admission?: YesPlan: continue antiplt tx (3) Hyperlipidemia Qualifiers: Hyperlipidemia type: unspecified Qualified Code(s): E78.5 - Hyperlipidemia, unspecified Is this a current diagnosis for this admission?: YesPlan: continue statin and ck lipids in am (4) Hypertension Qualifiers: Hypertension type: essential hypertension Qualified Code(s): I10 - Essential (primary) hypertension Is this a current diagnosis for this admission?: YesPlan: resume home regimen once confirmed (5) Hypothyroidism Qualifiers: Hypothyroidism type: acquired Qualified Code(s): E03.9 - Hypothyroidism, unspecified Is this a current diagnosis for this admission?: YesPlan: resume synthroid (6) Palpitations Is this a current diagnosis for this admission?: YesPlan: possibly SVT or afib and with known distal disease raising possibility of rate related ischemia; monitor overnight - Time Time Spent: 50 to 70 Minutes Medications reviewed and adjusted accordingly: Yes Anticipated discharge: Home Within: within 48 hours
[2017-03-07] MEDS ORDERED: ISOSORBIDE MONONITRATE 60 MG TAB.ER.24H PO SCH (19:00)
[2017-03-07] MEDS ORDERED: ISOSORBIDE MONONITRATE 30 MG TAB.ER.24H PO ONE (20:00)
[2017-03-07] MEDS ORDERED: ATORVASTATIN CALCIUM 40 MG TABLET PO SCH (22:00)
[2017-03-08] MEDS ORDERED: LANSOPRAZOLE 30 MG TAB.RAP.DR PO SCH (06:00)
[2017-03-08 06:33] LABS: CHOLESTEROL 127.25 mg/dL (0-200); Direct HDL 67 mg/dL (>40); TRIGLYCERIDES 93 mg/dL (<150)
[2017-03-08 06:43] LABS: DIRECT LDL 42 mg/dL (<100)
--- NOTE | 2017-03-08 08:19 | EKG REPORT ---
SEVERITY:- ABNORMAL ECG - SINUS BRADYCARDIA NONSPECIFIC T ABNORMALITIES, DIFFUSE LEADS : Confirmed by: Robert Ferrell MD 08-Mar-2017 08:18:08
[2017-03-08] MEDS ORDERED: ASPIRIN 81 MG TABLET, ENT COATED PO SCH (10:00)
[2017-03-08] MEDS ORDERED: REGADENOSON INJ 0.4 MG/5 ML DISP.SYRIN IV ONE (10:56)
[2017-03-08] MEDS ORDERED: ONDANSETRON HCL INJ/PF 4 MG/2 ML SDV IV PRN (13:32)
[2017-03-08] MEDS ORDERED: MORPHINE SULFATE 10 MG/ML INJ IV PRN (13:33)
--- NOTE | 2017-03-08 13:55 | DRAGON STRESS TEST REPORT ---
Intravenous Lexiscan Cardiolite stress test using single photon emmision computerized tomography. Date of procedure: 03/08/2017. Ordering Provider: Dr. Gerald Diallo. Patient's status: Inpatient. Indication: Chest pain in a patient with coronary artery disease and history of stent in the left central descending artery.. Coronary risk factors: Age, hypertension, dyslipidemia, and family history of coronary artery disease. Resting EKG: Sinus Rhythm. T inversion in leads II, III, aVF, V5 and V6. Stress EKG:[ No changes of ischemia. The patient had transient chest pressure with shortness of breath, with no EKG changes. There were no arrhythmias seen. Reason for termination: Protocol. Conclusions: Normal EKG and hemodynamic response to IV Lexiscan. Nuclear data: At rest the patient was given millicuries of 10.35 technetium 99m sestamibi injected intravenously. As per protocol rest non gated SPECT images were obtained. Subsequently the patient was given intravenous Lexiscan at a dose of 0.4 mg in 5 mL intravenously, followed by flush with normal saline. Subsequently the stress dose of 30.6 millicuries of technetium 99m sestamibi was injected intravenously. As per protocol stress gated images were obtained. Nuclear interpretation: Review of images showed that there is a perfusion defect involving the apical inferior wall in the stress images only, which perfusion normalizes in the resting images. This area has normal motion contraction and thickening by gated study. The rest of the l segments of the myocardium had normal perfusion at rest, and normal perfusion post stress with IV Lexiscan. All segments of the myocardium had normal motion, contraction, and thickening by gated study. T. I D. ratio was normal at 1.18. Computer read rest, and stress left ventricular ejection fraction were 61 %, and 57 %, respectively. Conclusion: 1. There is scintigraphic evidence of Lexiscan induced myocardial ischemia involving the apical inferior wall . 2. There is no scintigraphic evidence of myocardial infarction/scar. Recommendations: 1. Correlate clinically. 2.Will recommend cardiac catheterization a in view of the patient's symptoms of chest pain, EKG changes, and history of coronary artery disease with prior stenting. Maximize medical treatment of coronary artery disease. 3. Aggressive risk factor modification, and treating the underlying co- morbidities. [facility]Anthony
[2017-03-08] MEDS ORDERED: CARVEDILOL 12.5 MG TABLET PO ONE (14:00)
[2017-03-08] MEDS ORDERED: LEVOTHYROXINE SODIUM 0.088 MG TABLET PO ONE (14:00)
[2017-03-08 14:19] VITALS: BP 162/67
[2017-03-08] MEDS ORDERED: ENOXAPARIN SODIUM INJ 80 MG/0.8 ML DISP.SYRIN SUBCUT ONE (14:30)
--- NOTE | 2017-03-08 14:37 | PDOC TRANSFER SUMMARY ---
General Admission Date/PCP: 03/07/17 18:38 SHARAD GLEASON Transfer Date: 03/08/17 Accepting Facility: [facility] Resuscitation Status: Full Code - Transfer Diagnosis (1) ACS (acute coronary syndrome) Is this a current diagnosis for this admission?: YesDiagnosis Summary: per dr caruso she has an area at the apex of reversible ischemia and ecg changes of TWI in inferolateral leads therefore needs transfer to tertiary care center for left heart cath. (2) Chest pain Is this a current diagnosis for this admission?: YesDiagnosis Summary: while troponins are normal her stress test is positive and she became symptomatic during the test replicating those prompting her ED visit. recommending transfer to tertiary center for invasive evaluation by nuclear physics teacher. (3) Hyperlipidemia Is this a current diagnosis for this admission?: YesDiagnosis Summary: well controlled on statin, continue same. LDL <70 (4) CAD (coronary artery disease) Is this a current diagnosis for this admission?: Yes (5) Hypertension Is this a current diagnosis for this admission?: Yes (6) Hypothyroidism Is this a current diagnosis for this admission?: Yes (7) Palpitations Is this a current diagnosis for this admission?: Yes - Transfer Medications Home Medications: Aspirin [Aspirin 81 mg Chewable Tablet] 81 mg PO DAILY 03/07/17 Atorvastatin Calcium [Lipitor 40 mg Tablet] 40 mg PO QHS 03/07/17 Carvedilol [Coreg 12.5 mg Tablet] 12.5 mg PO Q12 03/07/17 Clopidogrel Bisulfate [Plavix 75 mg Tablet] 75 mg PO DAILY 03/07/17 Cyanocobalamin (Vitamin B-12) [B-12] 5,000 mcg PO DAILY 03/07/17 Escitalopram Oxalate [Lexapro 10 mg Tablet] 10 mg PO DAILY 03/07/17 Ferrous Sulfate [Feosol 325 mg Tablet] 325 mg PO DAILY 03/07/17 Isosorbide Mononitrate [Imdur 30 mg Tablet.er] 30 mg PO DAILY 03/07/17 Levothyroxine Sodium [Synthroid 0.088 mg Tablet] 88 mcg PO DAILY 03/07/17 Lisinopril [Prinivil 40 mg Tablet] 40 mg PO DAILY 03/07/17 Multivitamin [Daily Multiple Vitamin] 1 each PO DAILY 03/07/17 Transfer Medications: Current Medications Aspirin (Ecotrin 81 Mg Ec Tablet) 81 mg PO DAILY [facility] Stop: 04/07/17 09:59 Last Admin: 03/08/17 11:45 Dose: 81 mg Atorvastatin Calcium (Lipitor 40 Mg Tablet) 40 mg PO QHS KATHLEEN Stop: 04/06/17 21:59 Last Admin: 03/07/17 21:44 Dose: 40 mg Carvedilol (Coreg 12.5 Mg Tablet) 12.5 mg PO Q12 KATHLEEN Stop: 04/07/17 21:59 Clopidogrel Bisulfate (Plavix 75 Mg Tablet) 75 mg PO DAILY [facility] Stop: 04/08/17 09:59 Enoxaparin Sodium (Lovenox Inj 80 Mg/0.8 Ml Disp.Syrin) 65 mg SUBCUT Q12 [facility] Stop: 04/07/17 13:59 Escitalopram Oxalate (Lexapro 10 Mg Tablet) 10 mg PO DAILY [facility] Stop: 04/08/17 09:59 Ferrous Sulfate (Feosol 325 Mg Tablet) 325 mg PO DAILY [facility] Stop: 04/08/17 09:59 Isosorbide Mononitrate (Imdur 30 Mg Tablet.Er) 30 mg PO QPM [facility] Stop: 04/07/17 17:59 Lansoprazole (Prevacid 30 Mg Odt Tablet) 30 mg PO Q6AM [facility] Stop: 04/07/17 05:59 Last Admin: 03/08/17 06:49 Dose: Not Given Levothyroxine Sodium (Synthroid 0.088 Mg Tablet) 0.088 mg PO Q6AM [facility] Stop: 04/08/17 05:59 Lisinopril (Prinivil 10 Mg Tablet) 40 mg PO DAILY [facility] Stop: 04/08/17 09:59 Morphine Sulfate (Morphine 10 Mg/Ml Inj) 2 mg IV Q4HP PRN PRN Reason: pain if not relieved by nitro Stop: 03/14/17 18:37 Nitroglycerin (Nitrostat 0.4 Mg (1/150 Gr) Tabs 25/Bottle) 1 tab SL Q5MP PRN PRN Reason: chest pain Stop: 03/09/17 18:39 Ondansetron HCl (Zofran Inj/Pf 4 Mg/2 Ml Sdv) 4 mg IV Q6HP PRN PRN Reason: FOR NAUSEA/VOMITING Stop: 04/06/17 18:37 Sodium Chloride (Saline Flush 2.5 Ml Monoject Prefil Syrin) 2.5 ml IV Q8 KATHLEEN Stop: 04/06/17 21:59 Last Admin: 03/08/17 13:42 Dose: Not Given - Allergies Allergies/Adverse Reactions: coconut Allergy (Intermediate, Verified 03/07/17 13:08) THROAT SWELLING, HARD TO BREATHE - Diet/Activity Discharge Diet: Cardiac Discharge Activity: Bedrest Hospital Course Hospital Course: ANUPAM PEACE is a 61 year old female presents to the eD from home with one month hx of progressive and worsening substernal chest pain described as unbearable squeezing in the center of her chest radiating into left jaw and arm , lasting minutes, relieved with nitro, no exac factors and asct'd with PALACIO, NT left fingers, diaphoresis but no N/V or epigastric pain. occasionally asct'd with palpitations and sense of racing heart. had one episode 2 wks ago where she became lightheaded and passed out for 1-2 minutes but did not seek medical attention. she has significant cardiac and GI history with stent to LAD 2001 and repeat cath 2012 showed distal small vessel disease not amenable to stenting. she had to stop her ASA/plavix in 07/2016 due to gastric ulcer that formed at her gastric bypass anastomosis that repeat endoscopy by dr delgado in 10/2016 proved was healed. when her chest pain started 1-2 months ago she resumed her asa/ plavix on her own. eval in ED shows neg Won but nonspecific changes on ecg when compared to 10/2016 and given her risk factors we were asked to admit for further eval and management. she was admitted and ruled out for acute ischemia with negative cardiac enzymes but due to her risk factors underwent cardiolyte stress testing interpreted as abnormal with reversible ischemia of the inferoapical wall and ecg changes of TWI in similar distribution. she reports dizziness, chest pressure and SOA during the stress test, similar to symptoms that brought her to hospital. she is currently chest pain free. After discussing these findings with her, she agrees to transfer to [place] for invasive cardiology evaluation. Inpatient meds adjusted to include full dose lovenox and also include asa, plavix, coreg, lisinopril, imdur and atorvastatin. I spoke with Dr Heredia, cardio fellow at [facility] who has agreed to accept her in transfer. she is stable for transfer at this time. Physical Exam Vital Signs: Temp Pulse Resp BP Pulse Ox 97.8 F 49 L 16 153/64 H 98 03/08/17 08:15 03/08/17 08:15 03/08/17 08:15 03/08/17 08:15 03/08/17 08:15 Intake & Output 03/07/17 03/08/17 03/09/17 06:59 06:59 06:59 Intake Total 200 Balance 200 Weight 63.2 kg General appearance: PRESENT: no acute distress, well-developed, well-nourished Head exam: PRESENT: atraumatic, normocephalic Eye exam: PRESENT: EOMI. ABSENT: conjunctival injection, scleral icterus Mouth exam: PRESENT: moist, neck supple Neck exam: ABSENT: carotid bruit, JVD, lymphadenopathy, tenderness Respiratory exam: PRESENT: clear to auscultation chetna. ABSENT: accessory muscle use Cardiovascular exam: PRESENT: RRR. ABSENT: diastolic murmur, systolic murmur Pulses: PRESENT: normal carotid pulses, normal radial pulses Vascular exam: PRESENT: normal capillary refill GI/Abdominal exam: PRESENT: normal bowel sounds, soft. ABSENT: tenderness Extremities exam: ABSENT: calf tenderness, pedal edema Musculoskeletal exam: PRESENT: ambulatory, full ROM Neurological exam: PRESENT: alert, awake, oriented to person, oriented to place , oriented to time, oriented to situation Psychiatric exam: PRESENT: appropriate affect, normal mood Skin exam: PRESENT: dry, warm Results Laboratory Results: 03/08/17 06:09 Triglycerides 93 Cholesterol 127.25 LDL Cholesterol Direct 42 VLDL Cholesterol 19.0 HDL Cholesterol 67 03/07/17 03/08/17 20:19 01:48 Troponin I < 0.012 < 0.012 Impressions: Chest X-Ray 03/07/17 13:34 IMPRESSION: NO ACUTE RADIOGRAPHIC FINDING IN THE CHEST. Plan Discharge Plan: transfer for invasive cardiology evaluation. Time Spent: Greater than 30 Minutes
[2017-03-08] MEDS ORDERED: ISOSORBIDE MONONITRATE 30 MG TAB.ER.24H PO SCH (18:00)
[2017-03-08] MEDS ORDERED: ENOXAPARIN SODIUM INJ 80 MG/0.8 ML DISP.SYRIN SUBCUT SCH (22:00)
[2017-03-08] MEDS ORDERED: CARVEDILOL 12.5 MG TABLET PO SCH (22:00)
[2017-03-09] MEDS ORDERED: LEVOTHYROXINE SODIUM 0.088 MG TABLET PO SCH (06:00)
[2017-03-09] MEDS ORDERED: CLOPIDOGREL BISULFATE 75 MG TABLET PO SCH (10:00)
[2017-03-09] MEDS ORDERED: LISINOPRIL 10 MG TABLET PO SCH (10:00)
[2017-03-09] MEDS ORDERED: FERROUS SULFATE 325 MG TABLET PO SCH (10:00)
[2017-03-09] MEDS ORDERED: ESCITALOPRAM OXALATE 10 MG TABLET PO SCH (10:00)
== END 2017-03-08 18:23 | disposition short-term general hospital (02) ==
LOC: ER 12:47 → UNDOADMOB 13:38 → EH 13:38 → 4S 23:12
PROVIDERS: ADMIT Internal Medicine; ATTEND Internal Medicine
DX: I24.9 Acute ischemic heart disease, unspecified (principal); R07.89 Other chest pain; R94.39 Abnormal result of other cardiovascular function study; E78.5 Hyperlipidemia, unspecified; I25.118 Atherosclerotic heart disease of native coronary artery with other forms of angina pectoris; I10 Essential (primary) hypertension; E03.9 Hypothyroidism, unspecified; R00.2 Palpitations; I25.2 Old myocardial infarction; Z79.82 Long term (current) use of aspirin; Z79.899 Other long term (current) drug therapy; Z79.02 Long term (current) use of antithrombotics/antiplatelets; Z95.5 Presence of coronary angioplasty implant and graft; Z98.84 Bariatric surgery status; Z98.0 Intestinal bypass and anastomosis status; Z87.891 Personal history of nicotine dependence; Z82.49 Family history of ischemic heart disease and other diseases of the circulatory system
CPT/HCPCS: 93005 ×2; 99285; 36415 ×2; 85025; 80053; 84484 ×2; 80061; 93017; 71010; 78452; 93010 ×2; A9500; J2785; J3490; J1650; Q9969; G0378

== ENCOUNTER → 2017-08-15 | Outpatient (CLI) | payer BC ==
--- NOTE | 2017-08-15 14:07 | RADIOLOGY REPORT (SQ) ---
EXAM DESCRIPTION: CHEST PA/LATERAL COMPLETED DATE/TIME: 08/15/2017 12:47 pm REASON FOR STUDY: COUGH COMPARISON: 03/07/2017 EXAM PARAMETERS: NUMBER OF VIEWS: two views TECHNIQUE: Digital Frontal and Lateral radiographic views of the chest acquired. RADIATION DOSE: NA LIMITATIONS: none FINDINGS: LUNGS AND PLEURA: No opacities, masses or pneumothorax. No pleural effusion. MEDIASTINUM AND HILAR STRUCTURES: No masses or contour abnormalities. HEART AND VASCULAR STRUCTURES: Heart normal size. No evidence for failure. BONES: No acute findings. HARDWARE: None in the chest. OTHER: No other significant finding. IMPRESSION: NO SIGNIFICANT RADIOGRAPHIC FINDING IN THE CHEST. TECHNICAL DOCUMENTATION: JOB ID: [id number] [employer]- All Rights Reserved
== END ==
LOC: OD 12:19
PROVIDERS: ATTEND Physician Assistant Medical
DX: R05 Cough (principal)
CPT/HCPCS: 71020

== ENCOUNTER 2018-01-02 01:44 | Inpatient (IN) | payer BC ==
[2018-01-02] MEDS ORDERED: PANTOPRAZOLE SODIUM 40 MG VIAL IV ONE (01:52)
[2018-01-02] MEDS ORDERED: NORMAL SALINE 250 ML IV PRN (01:54)
[2018-01-02] MEDS ORDERED: PANTOPRAZOLE SODIUM 40 MG VIAL IV PRN (01:57)
--- NOTE | 2018-01-02 02:00 | ER Document Report ---
ED General - General Stated Complaint: VOMITING BLOOD/BLOOD IN STOOL Time Seen by Provider: 01/02/18 01:46 Mode of Arrival: Medic Information source: Patient, Emergency Med Personnel Notes: 62-year-old history of upper GI bleeds presents with complaints of vomiting bright red blood syncope dark stools over the past few days. Patient notes she feels generalized weakness TRAVEL OUTSIDE OF THE [place] IN LAST 30 DAYS: No - HPI Onset: Other Onset/Duration: Persistent Quality of pain: Burning Severity: Severe Pain Level: 2 Associated symptoms: Nausea, Vomiting, Weakness, Other - Syncope Exacerbated by: Denies Relieved by: Denies Similar symptoms previously: Yes Recently seen / treated by doctor: Yes - Related Data Allergies/Adverse Reactions: coconut Allergy (Intermediate, Verified 03/07/17 13:08) THROAT SWELLING, HARD TO BREATHE Past Medical History - Social History Smoking Status: Never Smoker Cigarette use (# per day): No Chew tobacco use (# tins/day): No Smoking Education Provided: No Family History: Reviewed & Not Pertinent, CAD, CVA, DM, Hyperlipidemia, Hypertension, Malignancy, Thyroid Disfunction - Past Medical History Cardiac Medical History: Reports: Hx Coronary Artery Disease, Hx Heart Attack, Hx Hypercholesterolemia, Hx Hypertension Pulmonary Medical History: Denies: Hx Asthma, Hx Bronchitis, Hx COPD, Hx Pneumonia Neurological Medical History: Denies: Hx Cerebrovascular Accident, Hx Seizures Endocrine Medical History: Reports: Hx Diabetes Mellitus Type 1, Hx Diabetes Mellitus Type 2 Renal/ Medical History: Denies: Hx Peritoneal Dialysis GI Medical History: Reports: Hx Gastroesophageal Reflux Disease Musculoskeltal Medical History: Denies Hx Arthritis Psychiatric Medical History: Reports: Hx Depression Past Surgical History: Reports: Hx Bowel Surgery - gastric bypass, Hx Cardiac Catheterization, Hx Cholecystectomy, Hx Coronary Stent - 2001, Hx Gastric Bypass Surgery, Hx Tubal Ligation - Immunizations Immunizations up to date: Yes Hx Diphtheria, Pertussis, Tetanus Vaccination: Yes Hx Pneumococcal Vaccination: 08/27/09 Review of Systems - Review of Systems Notes: REVIEW OF SYSTEMS: CONSTITUTIONAL : Denies fever, chills, or sweats. Denies recent illness. EENT: Denies eye, ear, throat, or mouth pain or symptoms. Denies nasal or sinus congestion or discharge. Denies throat, tongue, or mouth swelling or difficulty swallowing. CARDIOVASCULAR: Denies chest pain. Denies palpitations or racing or irregular heart beat. Denies ankle edema. RESPIRATORY: Denies cough, cold, or chest congestion. Denies shortness of breath, difficulty breathing, or wheezing. GASTROINTESTINAL: Admits to abdominal pain vomiting GENITOURINARY: Denies difficulty urinating, painful urination, burning, frequency, blood in urine, or discharge. FEMALE GENITOURINARY: Denies vaginal bleeding, heavy or abnormal periods, irregular periods. Denies vaginal discharge or odor. MUSCULOSKELETAL: Denies back or neck pain or stiffness. Denies joint pain or swelling. SKIN: Denies rash, lesions or sores. HEMATOLOGIC : Denies easy bruising or bleeding. LYMPHATIC: Denies swollen, enlarged glands. NEUROLOGICAL: Admits syncope PSYCHIATRIC: Denies anxiety or stress. Denies depression, suicidal ideation, or homicidal ideation. ALL OTHER SYSTEMS REVIEWED AND NEGATIVE. PHYSICAL EXAMINATION: GENERAL: Ill-appearing female HEAD: Atraumatic, normocephalic. EYES: Pupils equal round and reactive to light, extraocular movements intact, conjunctiva are normal. ENT: Nares patent, oropharynx clear without exudates. Moist mucous membranes. NECK: Normal range of motion, supple without lymphadenopathy LUNGS: Breath sounds clear to auscultation bilaterally and equal. No wheezes rales or rhonchi. HEART: Bradycardic ABDOMEN: Soft, nontender, nondistended abdomen. No guarding, no rebound. No masses appreciated. Female : deferred Musculoskeletal: Normal range of motion, no pitting or edema. No cyanosis. NEUROLOGICAL: Cranial nerves grossly intact. Normal speech, normal gait. Normal sensory, motor exams PSYCH: Normal mood, normal affect. SKIN: Extremely pale right lower lip abrasion Dictation was performed using [employer] voice recognition software Physical Exam - Vital signs Vitals: Resp Pulse Ox 14 99 01/02/18 01:53 01/02/18 01:53 Course - Re-evaluation Re-evalutation: 01/02/18 02:10 Patient is extremely ill-appearing, emergency release blood has been ordered, she has been intubated in the past, Protonix ordered, her GI specialist is Dr. Valente who will be semiconductor technician at 7 AM 01/02/18 04:27 Dr Mora to be paged at dr Ramirez request 01/02/18 05:16 Dr Mora paged again 01/02/18 05:[address] Mora, he will take care of patient, Dr Wiley paged for admission - Vital Signs Vital signs: Temp Pulse Resp BP Pulse Ox 97.5 F 12 138/65 H 100 01/02/18 02:14 01/02/18 04:01 01/02/18 04:01 01/02/18 04:01 - Laboratory Result Diagrams: 01/02/18 05:07 01/02/18 01:27 Laboratory results interpreted by me: 01/02/18 01/02/18 01/02/18 01:27 01:27 01:55 RBC 2.71 L Hgb 7.2 L Hct 22.0 L MCH 26.5 L RDW 16.2 H Plt Count Sodium 146.4 H Chloride 111 H BUN 47 H Glucose 191 H Total Bilirubin < 0.1 L Total Protein 4.8 L Albumin 2.8 L Crossmatch See Detail 01/02/18 05:07 RBC 3.24 L Hgb 8.9 L Hct 26.3 L MCH RDW 16.4 H Plt Count 128 L Sodium Chloride BUN Glucose Total Bilirubin Total Protein Albumin Crossmatch Critical Care Note - Critical Care Note Total time excluding time spent on procedures (mins): 46 Comments: 46 minutes of critical care time spent in direct contact evaluating and reevaluating the patient, treating symptoms, reviewing labs and studies and speaking with family and consultants excluding any procedures Discharge - Discharge Clinical Impression: Bradycardia GI bleed Qualifiers: GI bleed type/associated pathology: unspecified gastrointestinal hemorrhage type Qualified Code(s): K92.2 - Gastrointestinal hemorrhage, unspecified Anemia Qualifiers: Anemia type: other cause Other causes of anemia: other cause, not classified Qualified Code(s): D64.89 - Other specified anemias Condition: Critical Disposition: ADMITTED INPATIENT Admitting Provider: Hospitalist Unit Admitted: ICU Referrals: MARICEL LOPEZ PA-C [Primary Care Provider] - Follow up as needed
[2018-01-02 02:29] LABS: ABSOLUTE BASOPHILS # (AUTO) 0.1 10^3/uL (0.0-0.2); ABSOLUTE EOSINOPHILS # (AUTO) 0.1 10^3/uL (0.0-0.6); ABSOLUTE MONOCYTES (AUTO) 0.6 10^3/uL (0.1-1.4); ABSOLUTE NEUT (AUTO) 2.3 10^3/uL (1.7-8.2); ALANINE AMINOTRANSFERASE 30 U/L (9-52); ALBUMIN 2.8 g/dL (3.5-5.0); ALKALINE PHOSPHATASE 45 U/L (38-126); ANION GAP 12 (5-19); ASPARTATE AMINO TRANSFERASE 20 U/L (14-36); BLOOD UREA NITROGEN 47 mg/dL (7-20); CALCIUM 8.8 mg/dL (8.4-10.2); CARBON DIOXIDE 23 mmol/L (22-30); CHLORIDE 111 mmol/L (98-107); EOSINOPHILS % (AUTO) 1.9 % (0-6); GLUCOSE 191 mg/dL (75-110); MEAN CORPUSCULAR HEMOGLOBIN 26.5 pg (27.0-33.4); MEAN CORPUSCULAR HGB CONC 32.7 g/dL (32.0-36.0); MEAN CORPUSCULAR VOLUME 81 fl (80-97); MONOCYTES % (AUTO) 12.5 % (3-13); PLATELET COUNT 182 10^3/uL (150-450); RED BLOOD COUNT 2.71 10^6/uL (3.72-5.28); RED CELL DISTRIBUTION WIDTH 16.2 % (11.5-14.0); SEGMENTED NEUTROPHILS % (AUTO) 44.6 % (42-78); SODIUM 146.4 mmol/L (137-145); TOTAL CELLS COUNTED % (AUTO) 100 %; TOTAL PROTEIN 4.8 g/dL (6.3-8.2); WHITE BLOOD COUNT 5.1 10^3/uL (4.0-10.5)
[2018-01-02 02:31] LABS: BILIRUBIN,TOTAL < 0.1 mg/dL (0.2-1.3)
[2018-01-02 02:48] LABS: HEMOGLOBIN 7.2 g/dL (12.0-15.5)
[2018-01-02] MEDS: NORMAL SALINE 1000 ML 1,000 ML IV PRN ×2 (03:09→03:20)
[2018-01-02] MEDS: NORMAL SALINE 250 ML IV PRN ×2 (03:19→11:08)
[2018-01-02 05:15] LABS: HEMATOCRIT 26.3 % (36.0-47.0); HEMOGLOBIN 8.9 g/dL (12.0-15.5); MEAN CORPUSCULAR HEMOGLOBIN 27.4 pg (27.0-33.4); MEAN CORPUSCULAR HGB CONC 33.7 g/dL (32.0-36.0); MEAN CORPUSCULAR VOLUME 81 fl (80-97); PLATELET COUNT 128 10^3/uL (150-450); RED BLOOD COUNT 3.24 10^6/uL (3.72-5.28); RED CELL DISTRIBUTION WIDTH 16.4 % (11.5-14.0); WHITE BLOOD COUNT 6.4 10^3/uL (4.0-10.5)
[2018-01-02] MEDS ORDERED: DEXTROSE 50%-WATER 25 GM/50 ML DISP.SYRIN IV PRN ×2 (06:35)
[2018-01-02] MEDS ORDERED: DEXTROSE 40% GEL 15 GM TUBE PO PRN ×2 (06:35)
[2018-01-02] MEDS ORDERED: ACETAMINOPHEN 650 MG SUPP.RECT PR PRN (06:35)
[2018-01-02] MEDS ORDERED: IPRATROPIUM/ALBUTEROL 0.5-2.5 MG/3 ML AMPUL NEB PRN (06:35)
[2018-01-02] MEDS ORDERED: GLUCAGON,HUMAN RECOMB 1 MG INJ SUBCUT PRN (06:35)
[2018-01-02] MEDS: NORMAL SALINE 1000 ML 1,000 ML IV SCH ×2 (07:07→11:08)
--- NOTE | 2018-01-02 07:28 | PDOC H&P ---
History of Present Illness Admission Date/PCP: 01/02/18 06:02 MARICEL LOPEZ PA-C Patient complains of: Vomiting blood and black stool History of Present Illness: ANUPAM PEACE is a 62 year old female with a past medical history of gastric bypass, peptic ulcer, coronary artery disease on Brilinta and aspirin. Patient presents with 24 hours of fatigue, orthostasis, melena followed by hematemesis. She denies recent change in medications. Admits previous episode of peptic ulcer disease. In the emergency room she is found to have hemoglobin of 7.2. She receives 2 units of packed red blood cells, Protonix bolus and 2 L of normal saline. She denies chest or abdominal pain and referred to the hospitalist for admission. Dr. Mora is consulted by the emergency room physician who is available for endoscopy. Past Medical History Cardiac Medical History: Reports: Coronary Artery Disease, Myocardial Infarction , Hyperlipidema, Hypertension Pulmonary Medical History: Denies: Asthma, Bronchitis, Chronic Obstructive Pulmonary Disease (COPD), Pneumonia Neurological Medical History: Denies: Seizures Endocrine Medical History: Reports: Diabetes Mellitus Type 2 GI Medical History: Reports: Gastroesophageal Reflux Disease, Peptic Ulcer Disease Musculoskeltal Medical History: Denies: Arthritis Psychiatric Medical History: Reports: Depression Hematology: Denies: Anemia Past Surgical History Past Surgical History: Reports: Cardiac Catheterization, Cholecystectomy, Coronary Stent - 2001, Gastric Bypass Surgery, Tubal Ligation Social History Information Source: Patient, [facility] Records Smoking Status: Never Smoker Frequency of Alcohol Use: Social Hx Recreational Drug Use: No Hx Prescription Drug Abuse: No - Advance Directive Resuscitation Status: Full Code Family History Family History: Reviewed & Not Pertinent, CAD, CVA, DM, Hyperlipidemia, Hypertension, Malignancy, Thyroid Disfunction Parental Family History Reviewed: Yes Children Family History Reviewed: Yes Sibling(s) Family History Reviewed.: Yes Medication/Allergy Home Medications: Aspirin [Aspirin 81 mg Chewable Tablet] 81 mg PO DAILY 03/07/17 Atorvastatin Calcium [Lipitor 40 mg Tablet] 40 mg PO QHS 03/07/17 Carvedilol [Coreg 12.5 mg Tablet] 12.5 mg PO Q12 03/07/17 Clopidogrel Bisulfate [Plavix 75 mg Tablet] 75 mg PO DAILY 03/07/17 Cyanocobalamin (Vitamin B-12) [B-12] 5,000 mcg PO DAILY 07/12/17 Escitalopram Oxalate [Lexapro 10 mg Tablet] 10 mg PO DAILY 03/07/17 Ferrous Sulfate [Feosol 325 mg Tablet] 325 mg PO DAILY 03/07/17 Isosorbide Mononitrate [Imdur 30 mg Tablet.er] 30 mg PO DAILY 03/07/17 Levothyroxine Sodium [Synthroid 0.088 mg Tablet] 88 mcg PO DAILY 03/07/17 Lisinopril [Prinivil 40 mg Tablet] 40 mg PO DAILY 03/07/17 Multivitamin [Daily Multiple Vitamin] 1 each PO DAILY 03/07/17 Allergies/Adverse Reactions: coconut Allergy (Intermediate, Verified 03/07/17 13:08) THROAT SWELLING, HARD TO BREATHE Review of Systems Constitutional: PRESENT: as per HPI, fatigue, other - Orthostasis. ABSENT: anorexia, chills Eyes: ABSENT: visual disturbances Ears: ABSENT: hearing changes Cardiovascular: PRESENT: as per HPI, dyspnea on exertion Respiratory: ABSENT: cough, hemoptysis Gastrointestinal: PRESENT: coffee ground emesis, hematemesis, melena, vomiting. ABSENT: abdominal pain, constipation, diarrhea, hematochezia, nausea Genitourinary: ABSENT: dysuria, hematuria Musculoskeletal: ABSENT: joint swelling Integumentary: ABSENT: rash, wounds Neurological: ABSENT: abnormal gait, abnormal speech, confusion, dizziness, focal weakness, syncope Psychiatric: ABSENT: anxiety, depression, homidical ideation, suicidal ideation Endocrine: ABSENT: cold intolerance, heat intolerance, polydipsia, polyuria Hematologic/Lymphatic: ABSENT: easy bleeding, easy bruising Physical Exam Vital Signs: Temp Pulse Resp BP Pulse Ox 97.5 F 15 120/60 96 01/02/18 02:14 01/02/18 07:01 01/02/18 07:01 01/02/18 07:01 General appearance: PRESENT: mild distress, well-developed, well-nourished Head exam: PRESENT: atraumatic, normocephalic Eye exam: PRESENT: conjunctiva pale, EOMI, PERRLA. ABSENT: scleral icterus Ear exam: PRESENT: normal external ear exam Mouth exam: PRESENT: moist, tongue midline Neck exam: ABSENT: carotid bruit, JVD, lymphadenopathy, thyromegaly Respiratory exam: PRESENT: clear to auscultation chetna. ABSENT: rales, rhonchi, wheezes Cardiovascular exam: PRESENT: RRR. ABSENT: diastolic murmur, rubs, systolic murmur Pulses: PRESENT: normal dorsalis pedis pul Vascular exam: PRESENT: normal capillary refill GI/Abdominal exam: PRESENT: normal bowel sounds, soft, tenderness - Epigastrium. ABSENT: distended, guarding, mass, organolmegaly, rebound Rectal exam: PRESENT: deferred Extremities exam: PRESENT: full ROM. ABSENT: calf tenderness, clubbing, pedal edema Neurological exam: PRESENT: alert, awake, oriented to person, oriented to place , oriented to time, oriented to situation, CN II-XII grossly intact. ABSENT: motor sensory deficit Psychiatric exam: PRESENT: appropriate affect, normal mood. ABSENT: homicidal ideation, suicidal ideation Skin exam: PRESENT: dry, intact, warm. ABSENT: cyanosis, rash Assessment & Plan - Diagnosis (1) GI bleed Qualifiers: GI bleed type/associated pathology: unspecified gastrointestinal hemorrhage type Qualified Code(s): K92.2 - Gastrointestinal hemorrhage, unspecified Is this a current diagnosis for this admission?: Yes Plan: ICU admission, history of peptic ulcer disease with hematemesis. Protonix 80 mg bolus received, 72 hour drip initiated, hold Brilinta, type and screen 2 units of packed red blood cells, gastroenterology consulted for endoscopy. Follow-up CBC every 6 hours (2) Anemia Qualifiers: Anemia type: other cause Other causes of anemia: other cause, not classified Qualified Code(s): D64.89 - Other specified anemias Is this a current diagnosis for this admission?: Yes Plan: Secondary to #1 complicated by history, coronary artery disease, Brilinta and aspirin. Transfuse packed red blood cells as needed hemoglobin less than 8. (3) CAD (coronary artery disease) Qualifiers: Is this a current diagnosis for this admission?: Yes Plan: Hold Brilinta, transfuse packed red blood cells as needed hemoglobin less than 8 - Time Time Spent: 50 to 70 Minutes - Inpatient Certification Medical Necessity: Need Close Monitoring Due to Risk of Patient Decompensation
--- NOTE | 2018-01-02 09:20 | PDOC CONSULTATION ---
Consultation Consult Date: 01/02/18 Attending physician:: TOMMY WATT Consult reason:: Asked to see this patient for possible upper GI bleeding History of Present Illness Admission Date/PCP: 01/02/18 06:02 MARICEL LOPEZ PA-C History of Present Illness: ANUPAM PEACE is a 62 year old female patient has previously been seen has had an anastomotic ulcer in the past. Previous EGD have been done. She presented to the emergency room with some melena. Hemoglobin around 7.2. She was transfused with blood. Her hemoglobin is stable. She had been on PPI in the past. She is being admitted. She will need repeat EGD. Question of etiology at this point. She may potentially need repeat revision of her gastric bypass. Past Medical History Cardiac Medical History: Reports: Coronary Artery Disease, Myocardial Infarction , Hyperlipidema, Hypertension Pulmonary Medical History: Denies: Asthma, Bronchitis, Chronic Obstructive Pulmonary Disease (COPD), Pneumonia Neurological Medical History: Denies: Seizures Endocrine Medical History: Reports: Diabetes Mellitus Type 1, Diabetes Mellitus Type 2 GI Medical History: Reports: Gastroesophageal Reflux Disease, Peptic Ulcer Disease Musculoskeltal Medical History: Denies: Arthritis Psychiatric Medical History: Reports: Depression Hematology: Denies: Anemia Past Surgical History Past Surgical History: Reports: Cardiac Catheterization - stents, Cholecystectomy, Coronary Stent - 2001, Gastric Bypass Surgery, Tubal Ligation Social History Smoking Status: Never Smoker Frequency of Alcohol Use: Social Hx Recreational Drug Use: No Hx Prescription Drug Abuse: No - Advance Directive Resuscitation Status: Full Code Family History Family History: Reviewed & Not Pertinent, CAD, CVA, DM, Hyperlipidemia, Hypertension, Malignancy, Thyroid Disfunction Parental Family History Reviewed: Yes Children Family History Reviewed: Unknown Sibling(s) Family History Reviewed.: Unknown Medication/Allergy Home Medications: Aspirin 81 mg PO DAILY 01/02/18 Atorvastatin Calcium [Lipitor 80 mg Tablet] 80 mg PO QHS 01/02/18 Carvedilol 25 mg PO BID 01/02/18 Cyanocobalamin (Vitamin B-12) [Vitamin B-12] 5,000 mcg PO DAILY 01/02/18 Escitalopram Oxalate 10 mg PO QHS 01/02/18 Iron 65 mg PO DAILY 01/02/18 Lansoprazole [Prevacid 30 mg Odt Tablet] 60 mg PO BID 01/02/18 Levothyroxine Sodium [Synthroid 0.088 mg Tablet] 0.088 mg PO DAILY 01/02/18 Lisinopril 10 mg PO DAILY 01/02/18 Multivitamin [Multivitamins] 1 each PO DAILY 01/02/18 [place]-3/Dha/Epa/Fish Oil [[place] 3 500 Softgel] 2 each PO BID 01/02/18 Ticagrelor [Brilinta 90 mg Tablet] 90 mg PO BID 01/02/18 Ubidecarenone [Co Q10] 120 mg PO DAILY 01/02/18 Allergies/Adverse Reactions: coconut Allergy (Intermediate, Verified 01/02/18 07:45) THROAT SWELLING, HARD TO BREATHE Review of Systems Constitutional: ABSENT: fever(s), headache(s), night sweats, weakness Eyes: ABSENT: visual disturbances Ears: ABSENT: hearing changes Cardiovascular: ABSENT: edema, orthropnea, palpitations Respiratory: ABSENT: dyspnea, hemoptysis Gastrointestinal: PRESENT: melena. ABSENT: diarrhea, dysphagia, nausea, vomiting Genitourinary: ABSENT: dysuria, hematuria Musculoskeletal: ABSENT: deformity, joint swelling Integumentary: ABSENT: pruritus Neurological: ABSENT: syncope, tingling, tremor(s), vertigo Endocrine: ABSENT: polydipsia, polyphagia, polyuria Hematologic/Lymphatic: ABSENT: easy bruising Physical Exam Vital Signs: Temp Pulse Resp BP Pulse Ox 98.4 F 61 15 130/59 H 99 01/02/18 07:42 01/02/18 09:12 01/02/18 09:12 01/02/18 09:12 01/02/18 09:12 Intake & Output 01/01/18 01/02/18 01/03/18 06:59 06:59 06:59 Weight 67.6 kg General appearance: PRESENT: no acute distress, well-developed, well-nourished Head exam: PRESENT: atraumatic, normocephalic Eye exam: PRESENT: EOMI, PERRLA. ABSENT: scleral icterus Mouth exam: PRESENT: moist, neck supple Throat exam: ABSENT: tonsillar exudate, tonsillogmegaly Neck exam: ABSENT: meningismus, tenderness, thyromegaly Respiratory exam: PRESENT: symmetrical, unlabored. ABSENT: tachypnea, wheezes Cardiovascular exam: PRESENT: RRR, +S1, +S2 Vascular exam: PRESENT: pallor GI/Abdominal exam: PRESENT: soft. ABSENT: rebound, rigid, tenderness Extremities exam: ABSENT: joint swelling Musculoskeletal exam: PRESENT: full ROM Neurological exam: PRESENT: oriented to time, oriented to situation, CN II-XII grossly intact Focused psych exam: ABSENT: restlessness Skin exam: PRESENT: normal color. ABSENT: mottled, pallor, urticaria, vesicles Assessment & Plan - Diagnosis (1) GI bleed Qualifiers: GI bleed type/associated pathology: unspecified gastrointestinal hemorrhage type Qualified Code(s): K92.2 - Gastrointestinal hemorrhage, unspecified Is this a current diagnosis for this admission?: Yes Plan: She has had an anastomotic ulcer with previous GI bleeding in the past. She will need an EGD. Risk benefits alternatives of the procedure including risks of bleeding, perforation requiring surgery are explained to the patient in detail and informed consent is obtained. Agree with admission. Start IV PPI. Further recommendations to follow. - Time Time Spent: 50 to 70 Minutes
[2018-01-02] MEDS ORDERED: DIPHENHYDRAMINE HCL 50 MG/ML VIAL ONE (10:27)
[2018-01-02] MEDS ORDERED: ONDANSETRON HCL INJ/PF 4 MG/2 ML SDV ONE (10:27)
[2018-01-02] MEDS ORDERED: NALOXONE HCL INJ/PF 0.4 MG/1 ML SDV ONE (10:27)
[2018-01-02] MEDS ORDERED: GLUCAGON,HUMAN RECOMB 1 MG INJ ONE (10:28)
[2018-01-02] MEDS ORDERED: MIDAZOLAM 2 MG/2 ML INJ ONE (10:28)
[2018-01-02] MEDS ORDERED: FLUMAZENIL INJ 0.5 MG/5 ML VIAL ONE (10:28)
[2018-01-02] MEDS ORDERED: FENTANYL CITRATE INJ/PF 100 MCG/2 ML AMPUL ONE (10:28)
[2018-01-02] MEDS ORDERED: EPINEPHRINE INJ 1 MG/10 ML DISP.SYRIN ONE (10:28)
[2018-01-02] MEDS: MIDAZOLAM 2 MG/2 ML INJ ONE ×2 (10:56→11:00)
--- NOTE | 2018-01-02 11:34 | Operative Report ---
Operative Report DATE OF SURGERY: 01/02/18 Operative Report: The risks benefits and alternatives of the procedure explained to the patient in detail and informed consent is obtained.A GIF Olympus video scope was inserted into the patient's mouth and hypopharynx, the esophagus is identified intubated and insufflated, the scope was then advanced through the esophagus stomach and duodenum, retroflexion maneuver is done, the esophagus stomach and first and second portions of the duodenum examined PREOPERATIVE DIAGNOSIS: GI bleed POSTOPERATIVE DIAGNOSIS: Small ulcer noted at the anastomotic site status post treatment with 3 cc of epinephrine. 50/50 mix with normal saline. initial concentration at 1:10,000. Gastric bypass anatomy. No active bleeding noted OPERATION: EGD with control of hemorrhage SURGEON: TOMMY WATT ANESTHESIA: Moderate Sedation - 4 mg of Versed, 75 mcg of fentanyl. Conscious sedation monitoring time 30 minutes. TISSUE REMOVED OR ALTERED: None. COMPLICATIONS: None. ESTIMATED BLOOD LOSS: None. INTRAOPERATIVE FINDINGS: As noted above. PROCEDURE: Patient tolerated procedure well. No immediate postprocedure complications are noted. Follow H&H and transfuse as necessary. Start PPI Can start clears and advance as tolerated If stable can transfer out of ICU Patient has been taking oral iron, however because of her bypass it may not be absorbed. I would check a vitamin B12, iron level, calcium as well as vitamin D May need to see hematology for IV replacement of her iron. Continue to follow
[2018-01-02 12:02] LABS: ABSOLUTE EOSINOPHILS # (AUTO) 0.1 10^3/uL (0.0-0.6); ABSOLUTE LYMPHOCYTES (AUTO) 1.3 10^3/uL (0.5-4.7); ABSOLUTE MONOCYTES (AUTO) 0.6 10^3/uL (0.1-1.4); ABSOLUTE NEUT (AUTO) 4.9 10^3/uL (1.7-8.2); BASOPHILS % (AUTO) 0.4 % (0-2); EOSINOPHILS % (AUTO) 0.9 % (0-6); HEMATOCRIT 27.6 % (36.0-47.0); HEMOGLOBIN 9.5 g/dL (12.0-15.5); LYMPHOCYTES % (AUTO) 18.1 % (13-45); MEAN CORPUSCULAR HEMOGLOBIN 27.6 pg (27.0-33.4); MEAN CORPUSCULAR HGB CONC 34.4 g/dL (32.0-36.0); MEAN CORPUSCULAR VOLUME 80 fl (80-97); MONOCYTES % (AUTO) 9.2 % (3-13); PLATELET COUNT 129 10^3/uL (150-450); RED BLOOD COUNT 3.44 10^6/uL (3.72-5.28); RED CELL DISTRIBUTION WIDTH 16.2 % (11.5-14.0); SEGMENTED NEUTROPHILS % (AUTO) 71.4 % (42-78); TOTAL CELLS COUNTED % (AUTO) 100 %; WHITE BLOOD COUNT 6.9 10^3/uL (4.0-10.5)
[2018-01-02] MEDS ORDERED: ENALAPRILAT DIHYDRATE INJ/PF 1.25 MG/1 ML SDV IV ONE (13:45)
[2018-01-02] MEDS: NORMAL SALINE 100 ML with PANTOPRAZOLE SODIUM 80 MG IV PRN ×2 (15:15)
[2018-01-02 17:30] LABS: ABSOLUTE EOSINOPHILS # (AUTO) 0.1 10^3/uL (0.0-0.6); ABSOLUTE LYMPHOCYTES (AUTO) 1.1 10^3/uL (0.5-4.7); ABSOLUTE MONOCYTES (AUTO) 0.5 10^3/uL (0.1-1.4); ABSOLUTE NEUT (AUTO) 3.7 10^3/uL (1.7-8.2); BASOPHILS % (AUTO) 0.7 % (0-2); EOSINOPHILS % (AUTO) 1.3 % (0-6); HEMOGLOBIN 8.5 g/dL (12.0-15.5); LYMPHOCYTES % (AUTO) 19.8 % (13-45); MEAN CORPUSCULAR HEMOGLOBIN 27.5 pg (27.0-33.4); MEAN CORPUSCULAR HGB CONC 34.2 g/dL (32.0-36.0); MEAN CORPUSCULAR VOLUME 80 fl (80-97); MONOCYTES % (AUTO) 9.5 % (3-13); PLATELET COUNT 125 10^3/uL (150-450); RED BLOOD COUNT 3.11 10^6/uL (3.72-5.28); RED CELL DISTRIBUTION WIDTH 16.4 % (11.5-14.0); SEGMENTED NEUTROPHILS % (AUTO) 68.7 % (42-78); TOTAL CELLS COUNTED % (AUTO) 100 %; WHITE BLOOD COUNT 5.4 10^3/uL (4.0-10.5)
[2018-01-02] MEDS: CARBOXYMETHYLCELLULOSE SOD 0.5% 0.4 ML DROPERETTE OU SCH (22:51)
[2018-01-02 23:05] LABS: ABSOLUTE EOSINOPHILS # (AUTO) 0.1 10^3/uL (0.0-0.6); ABSOLUTE LYMPHOCYTES (AUTO) 1.1 10^3/uL (0.5-4.7); ABSOLUTE MONOCYTES (AUTO) 0.6 10^3/uL (0.1-1.4); ABSOLUTE NEUT (AUTO) 2.8 10^3/uL (1.7-8.2); BASOPHILS % (AUTO) 0.7 % (0-2); HEMOGLOBIN 8.3 g/dL (12.0-15.5); LYMPHOCYTES % (AUTO) 23.7 % (13-45); MEAN CORPUSCULAR HEMOGLOBIN 27.6 pg (27.0-33.4); MEAN CORPUSCULAR HGB CONC 34.4 g/dL (32.0-36.0); MEAN CORPUSCULAR VOLUME 80 fl (80-97); MONOCYTES % (AUTO) 12.4 % (3-13); PLATELET COUNT 116 10^3/uL (150-450); RED BLOOD COUNT 2.99 10^6/uL (3.72-5.28); RED CELL DISTRIBUTION WIDTH 16.2 % (11.5-14.0); SEGMENTED NEUTROPHILS % (AUTO) 60.2 % (42-78); TOTAL CELLS COUNTED % (AUTO) 100 %; WHITE BLOOD COUNT 4.7 10^3/uL (4.0-10.5)
[2018-01-03] MEDS: NORMAL SALINE 100 ML with PANTOPRAZOLE SODIUM 80 MG IV PRN ×2 (02:20)
[2018-01-03 04:50] LABS: ANION GAP 7 (5-19); BLOOD UREA NITROGEN 13 mg/dL (7-20); CALCIUM 8.3 mg/dL (8.4-10.2); CARBON DIOXIDE 26 mmol/L (22-30); CHLORIDE 110 mmol/L (98-107); GLUCOSE 97 mg/dL (75-110); PHOSPHORUS 3.1 mg/dL (2.5-4.5); POTASSIUM 3.2 mmol/L (3.6-5.0); SODIUM 142.9 mmol/L (137-145)
[2018-01-03] MEDS ORDERED: LEVOTHYROXINE SODIUM 0.088 MG TABLET PO SCH (06:00)
[2018-01-03 07:43] LABS: ABSOLUTE EOSINOPHILS # (AUTO) 0.2 10^3/uL (0.0-0.6); ABSOLUTE MONOCYTES (AUTO) 0.5 10^3/uL (0.1-1.4); ABSOLUTE NEUT (AUTO) 2.7 10^3/uL (1.7-8.2); BASOPHILS % (AUTO) 0.9 % (0-2); EOSINOPHILS % (AUTO) 3.6 % (0-6); HEMATOCRIT 24.9 % (36.0-47.0); HEMOGLOBIN 8.5 g/dL (12.0-15.5); MEAN CORPUSCULAR HEMOGLOBIN 27.3 pg (27.0-33.4); MEAN CORPUSCULAR VOLUME 80 fl (80-97); MONOCYTES % (AUTO) 11.7 % (3-13); PLATELET COUNT 117 10^3/uL (150-450); RED CELL DISTRIBUTION WIDTH 16.5 % (11.5-14.0); SEGMENTED NEUTROPHILS % (AUTO) 60.8 % (42-78); TOTAL CELLS COUNTED % (AUTO) 100 %; WHITE BLOOD COUNT 4.4 10^3/uL (4.0-10.5)
[2018-01-03] MEDS: CARBOXYMETHYLCELLULOSE SOD 0.5% 0.4 ML DROPERETTE OU SCH ×4 (09:49→22:52)
[2018-01-03] MEDS: LISINOPRIL 10 MG TABLET PO SCH (09:49)
[2018-01-03] MEDS: POTASSIUM CHLORIDE 20 MEQ/15 ML UDCUP PO SCH ×2 (11:16→17:14)
--- NOTE | 2018-01-03 12:12 | PDOC PROGRESS REPORT ---
Subjective Progress Note for:: 01/03/18 Subjective:: In bed. No acute complaints. Tolerated a liquid breakfast without problem. No further blood seen. No nausea. Reason For Visit: GIB Physical Exam Vital Signs: Temp Pulse Resp BP Pulse Ox 98.4 F 68 12 132/55 H 98 01/03/18 08:00 01/03/18 08:47 01/03/18 08:47 01/03/18 08:04 01/03/18 08:47 Intake & Output 01/02/18 01/03/18 01/04/18 05:59 05:59 05:59 Intake Total 427 716 Output Total 2200 500 Balance -1773 216 Weight 142 lb 6.698 oz General appearance: PRESENT: no acute distress Respiratory exam: PRESENT: clear to auscultation chetna Cardiovascular exam: PRESENT: RRR GI/Abdominal exam: PRESENT: soft. ABSENT: tenderness Neurological exam: PRESENT: alert Psychiatric exam: PRESENT: appropriate affect Skin exam: PRESENT: warm Results Laboratory Results: 01/03/18 03:50 01/03/18 03:50 01/02/18 01/02/18 01/03/18 17:10 23:00 03:50 WBC 5.4 4.7 RBC 3.11 L 2.99 L Hgb 8.5 L 8.3 L Hct 25.0 L 24.0 L MCV 80 80 MCH 27.5 27.6 MCHC 34.2 34.4 RDW 16.4 H 16.2 H Plt Count 125 L 116 L Seg Neutrophils % 68.7 60.2 Lymphocytes % 19.8 23.7 Monocytes % 9.5 12.4 Eosinophils % 1.3 3.0 Basophils % 0.7 0.7 Absolute Neutrophils 3.7 2.8 Absolute Lymphocytes 1.1 1.1 Absolute Monocytes 0.5 0.6 Absolute Eosinophils 0.1 0.1 Absolute Basophils 0.0 0.0 Sodium 142.9 Potassium 3.2 L Chloride 110 H Carbon Dioxide 26 Anion Gap 7 BUN 13 Creatinine 0.47 L Est GFR ( Amer) > 60 Est GFR (Non-Af Amer) > 60 Glucose 97 Calcium 8.3 L Phosphorus 3.1 Magnesium 1.9 TSH 01/03/18 01/03/18 03:50 03:50 WBC 4.4 RBC 3.10 L Hgb 8.5 L Hct 24.9 L MCV 80 MCH 27.3 MCHC 34.0 RDW 16.5 H Plt Count 117 L Seg Neutrophils % 60.8 Lymphocytes % 23.0 Monocytes % 11.7 Eosinophils % 3.6 Basophils % 0.9 Absolute Neutrophils 2.7 Absolute Lymphocytes 1.0 Absolute Monocytes 0.5 Absolute Eosinophils 0.2 Absolute Basophils 0.0 Sodium Potassium Chloride Carbon Dioxide Anion Gap BUN Creatinine Est GFR ( Amer) Est GFR (Non-Af Amer) Glucose Calcium Phosphorus Magnesium TSH 1.53 Assessment & Plan - Diagnosis (1) Upper GI bleed Is this a current diagnosis for this admission?: Yes Plan: Status post EGD with cauterization. Appears to be stable. Any to monitor hemoglobin. Advance diet (2) Hyperlipidemia Qualifiers: Hyperlipidemia type: unspecified Qualified Code(s): E78.5 - Hyperlipidemia , unspecified Is this a current diagnosis for this admission?: Yes Plan: Home medications on hold. (3) Hypertension Qualifiers: Hypertension type: essential hypertension Qualified Code(s): I10 - Essential (primary) hypertension Is this a current diagnosis for this admission?: Yes Plan: Coreg is currently on hold. Lisinopril has been continued. Reintroduce Coreg as blood pressure improves (4) Hypothyroidism Qualifiers: Hypothyroidism type: acquired Qualified Code(s): E03.9 - Hypothyroidism, unspecified Is this a current diagnosis for this admission?: Yes Plan: Home Synthroid continued (5) Paroxysmal atrial tachycardia Is this a current diagnosis for this admission?: Yes Plan: No evident episodes thus far. Continue to monitor closely. Restart Coreg when blood pressure will tolerate.
--- NOTE | 2018-01-03 12:49 | PDOC PROGRESS REPORT ---
Subjective Progress Note for:: 01/03/18 Subjective:: patient tolerated her procedure well still in ICU diet has been advanced no further bleeding chronic anemia likely due to gastric bypass not sure that oral iron is being absorbed will need hematology for IV infusion H/H is stable diet can be advanced, if no other issues should be able to be discharged unless other medications issues are present Reason For Visit: GIB Physical Exam Vital Signs: Temp Pulse Resp BP Pulse Ox 98.5 F 70 12 134/54 H 99 01/03/18 12:00 01/03/18 12:00 01/03/18 12:00 01/03/18 12:00 01/03/18 12:00 Intake & Output 01/02/18 01/03/18 01/04/18 06:59 06:59 06:59 Intake Total 543 1000 Output Total 2200 1100 Balance -1657 -100 Weight 64.6 kg General appearance: PRESENT: no acute distress, well-developed, well-nourished Head exam: PRESENT: atraumatic, normocephalic Eye exam: PRESENT: EOMI, PERRLA. ABSENT: nystagmus, periorbital swelling, scleral icterus Mouth exam: PRESENT: moist, neck supple Throat exam: ABSENT: tonsillar exudate, tonsillogmegaly Neck exam: ABSENT: meningismus, tenderness, thyromegaly Respiratory exam: PRESENT: symmetrical, unlabored. ABSENT: tachypnea, wheezes Cardiovascular exam: PRESENT: RRR, +S1, +S2 GI/Abdominal exam: PRESENT: soft. ABSENT: rebound, rigid, tenderness Extremities exam: ABSENT: joint swelling Musculoskeletal exam: PRESENT: full ROM Neurological exam: PRESENT: alert, awake, oriented to time, oriented to situation, CN II-XII grossly intact Psychiatric exam: PRESENT: appropriate affect Focused psych exam: ABSENT: restlessness Skin exam: PRESENT: normal color. ABSENT: mottled, pallor, urticaria, vesicles Results Laboratory Results: 01/03/18 03:50 01/03/18 03:50 01/02/18 01/02/18 01/03/18 17:10 23:00 03:50 WBC 5.4 4.7 RBC 3.11 L 2.99 L Hgb 8.5 L 8.3 L Hct 25.0 L 24.0 L MCV 80 80 MCH 27.5 27.6 MCHC 34.2 34.4 RDW 16.4 H 16.2 H Plt Count 125 L 116 L Seg Neutrophils % 68.7 60.2 Lymphocytes % 19.8 23.7 Monocytes % 9.5 12.4 Eosinophils % 1.3 3.0 Basophils % 0.7 0.7 Absolute Neutrophils 3.7 2.8 Absolute Lymphocytes 1.1 1.1 Absolute Monocytes 0.5 0.6 Absolute Eosinophils 0.1 0.1 Absolute Basophils 0.0 0.0 Sodium 142.9 Potassium 3.2 L Chloride 110 H Carbon Dioxide 26 Anion Gap 7 BUN 13 Creatinine 0.47 L Est GFR ( Amer) > 60 Est GFR (Non-Af Amer) > 60 Glucose 97 Calcium 8.3 L Phosphorus 3.1 Magnesium 1.9 TSH 01/03/18 01/03/18 03:50 03:50 WBC 4.4 RBC 3.10 L Hgb 8.5 L Hct 24.9 L MCV 80 MCH 27.3 MCHC 34.0 RDW 16.5 H Plt Count 117 L Seg Neutrophils % 60.8 Lymphocytes % 23.0 Monocytes % 11.7 Eosinophils % 3.6 Basophils % 0.9 Absolute Neutrophils 2.7 Absolute Lymphocytes 1.0 Absolute Monocytes 0.5 Absolute Eosinophils 0.2 Absolute Basophils 0.0 Sodium Potassium Chloride Carbon Dioxide Anion Gap BUN Creatinine Est GFR ( Amer) Est GFR (Non-Af Amer) Glucose Calcium Phosphorus Magnesium TSH 1.53 Assessment & Plan - Diagnosis (1) GI bleed Qualifiers: GI bleed type/associated pathology: unspecified gastrointestinal hemorrhage type Qualified Code(s): K92.2 - Gastrointestinal hemorrhage, unspecified Is this a current diagnosis for this admission?: Yes (2) Anemia Qualifiers: Anemia type: other cause Other causes of anemia: other cause, not classified Qualified Code(s): D64.89 - Other specified anemias Is this a current diagnosis for this admission?: Yes Plan: hematology consult for iron infusion not likely absorbing iron orally due to bypass (3) Upper GI bleed Is this a current diagnosis for this admission?: Yes Plan: small shallow anastomotic ulcer Epi injection done yesterday no further bleeding H/H stable PPI as outpatient advance diet should be able to be discharged - Time Time Spent with patient: 15-24 minutes
[2018-01-03] MEDS: LANSOPRAZOLE 30 MG TAB.RAP.DR PO SCH (17:15)
[2018-01-03] MEDS ORDERED: ESCITALOPRAM OXALATE 10 MG TABLET PO SCH (22:00)
[2018-01-03] MEDS ORDERED: ENALAPRILAT DIHYDRATE INJ/PF 1.25 MG/1 ML SDV IV ONE ×2 (22:13→22:45)
[2018-01-03 23:22] LABS: CREATINE KINASE MB 0.49 ng/mL (<4.55)
[2018-01-03 23:29] LABS: TROPONIN I < 0.012 ng/mL
[2018-01-04 05:17] LABS: HEMATOCRIT 26.2 % (36.0-47.0); HEMOGLOBIN 8.9 g/dL (12.0-15.5); MEAN CORPUSCULAR HEMOGLOBIN 27.4 pg (27.0-33.4); MEAN CORPUSCULAR HGB CONC 33.9 g/dL (32.0-36.0); MEAN CORPUSCULAR VOLUME 81 fl (80-97); PLATELET COUNT 140 10^3/uL (150-450); RED BLOOD COUNT 3.25 10^6/uL (3.72-5.28); RED CELL DISTRIBUTION WIDTH 16.9 % (11.5-14.0); WHITE BLOOD COUNT 4.2 10^3/uL (4.0-10.5)
[2018-01-04 05:30] LABS: ALBUMIN 3.1 g/dL (3.5-5.0); ANION GAP 9 (5-19); BLOOD UREA NITROGEN 9 mg/dL (7-20); CALCIUM 8.9 mg/dL (8.4-10.2); CARBON DIOXIDE 30 mmol/L (22-30); CHLORIDE 106 mmol/L (98-107); CREATINE KINASE 35 U/L (30-135); GLUCOSE 120 mg/dL (75-110); PHOSPHORUS 3.4 mg/dL (2.5-4.5); POTASSIUM 4.3 mmol/L (3.6-5.0)
[2018-01-04 05:36] LABS: CREATINE KINASE MB 0.45 ng/mL (<4.55)
[2018-01-04 05:46] LABS: TROPONIN I < 0.012 ng/mL
--- NOTE | 2018-01-04 07:47 | EKG REPORT ---
SEVERITY:- NORMAL ECG - SINUS RHYTHM : Confirmed by: Robert Ferrell MD 04-Jan-2018 07:46:38
[2018-01-04] MEDS ORDERED: FERROUS SULFATE 325 MG TABLET PO SCH (10:00)
[2018-01-04] MEDS: LISINOPRIL 10 MG TABLET PO SCH (10:15)
[2018-01-04] MEDS: LANSOPRAZOLE 30 MG TAB.RAP.DR PO SCH (10:16)
[2018-01-04] MEDS: CARBOXYMETHYLCELLULOSE SOD 0.5% 0.4 ML DROPERETTE OU SCH (10:17)
[2018-01-04 10:24] VITALS: BP 152/64
--- NOTE | 2018-01-04 17:16 | PDOC DISCHARGE SUMMARY ---
General - Admit/Disc Date/PCP Admission Date/Primary Care Provider: 01/02/18 06:02 MARICEL LOPEZ PA-C Discharge Date: 01/04/18 - Discharge Diagnosis (1) Upper GI bleed Is this a current diagnosis for this admission?: Yes Summary: Status post EGD with epinephrine treatment of a small ulcer at the anastomotic site. No bleeding was identified. In the interim she received 2 units of packed cells. Her previously diagnosed ulcers appear to be healing. She is currently tolerating a regular diet. (2) Hyperlipidemia Is this a current diagnosis for this admission?: Yes Summary: Home medications are continued (3) Hypertension Is this a current diagnosis for this admission?: Yes Summary: Home medications are continued (4) Hypothyroidism Is this a current diagnosis for this admission?: Yes Summary: Home medications are continued (5) Paroxysmal atrial tachycardia Is this a current diagnosis for this admission?: Yes Summary: Home medications are continued (6) CAD (coronary artery disease) Is this a current diagnosis for this admission?: Yes Summary: Her Brilinta and aspirin will be held for 2 weeks - Additional Information Resuscitation Status: Full Code Discharge Diet: Regular, Diabetic Discharge Activity: Activity As Tolerated Prescriptions: Ascorbic Acid [Vitamin C 500 mg Tablet] 500 mg PO BIDPCBS #60 tablet Ferrous Sulfate [Feosol 325 mg Tablet] 325 mg PO BIDPCBS #60 tablet Lansoprazole [Prevacid 30 mg Odt Tablet] 60 mg PO BID #60 tab Home Medications: Atorvastatin Calcium [Lipitor 80 mg Tablet] 80 mg PO QHS 01/02/18 Carboxymethylcellulose Sodium [Refresh Plus 0.5% Oph Soln 0.4 ml [place]] 1 drop OU QID 01/02/18 Carvedilol [Coreg 12.5 mg Tablet] 25 mg PO Q12 01/02/18 Cholecalciferol (Vitamin D3) [Vitamin D3 1000 Unit Tablet] 1,000 unit PO DAILY 01/02/18 Cyanocobalamin (Vitamin B-12) [Vitamin B-12 1000 mcg Tablet] 5,000 mcg PO DAILY 01/02/18 Escitalopram Oxalate 10 mg PO QHS 01/02/18 Ferrous Sulfate [Feosol 325 mg Tablet] 325 mg PO DAILY 01/02/18 Lansoprazole [Prevacid 30 mg Odt Tablet] 60 mg PO BID 01/02/18 Levothyroxine Sodium [Synthroid 0.088 mg Tablet] 0.088 mg PO DAILY 01/02/18 Lisinopril 10 mg PO DAILY 01/02/18 Multivitamin [Tab-A-[place] (Multiple Vitamin) Tablet] 1 tab PO DAILY 01/02/18 [place]-3/Dha/Epa/Fish Oil [[place] 3 500 Softgel] 2 each PO BID 01/02/18 Ubidecarenone [Co Q10] 120 mg PO DAILY 01/02/18 Ascorbic Acid [Vitamin C 500 mg Tablet] 500 mg PO BIDPCBS #60 tablet 01/04/18 Ferrous Sulfate [Feosol 325 mg Tablet] 325 mg PO BIDPCBS #60 tablet 01/04/18 Lansoprazole [Prevacid 30 mg Odt Tablet] 60 mg PO BID #60 tab.stephanie. 01/04/18 History of Present Illness Patient complains of: Throwing up blood History of Present Illness: ANUPAM PEACE is a 62 year old female with a past medical history of gastric bypass, peptic ulcer, coronary artery disease on Brilinta and aspirin. Patient presents with 24 hours of fatigue, orthostasis, melena followed by hematemesis. She denies recent change in medications. Admits previous episode of peptic ulcer disease. In the emergency room she is found to have hemoglobin of 7.2. She receives 2 units of packed red blood cells, Protonix bolus and 2 L of normal saline. She denies chest or abdominal pain and referred to the hospitalist for admission. Dr. Mora is consulted by the emergency room physician who is available for endoscopy. Hospital Course Hospital Course: She received 2 units of packed cells. She was seen promptly by gastroenterology who did an EGD which revealed a small bleeding ulcer at the anastomotic site which was treated with epinephrine. No active bleeding was noted. Physical Exam Vital Signs: Temp Pulse Resp BP Pulse Ox 98.0 F 49 L 15 152/64 H 100 01/04/18 10:21 01/04/18 10:21 01/04/18 10:21 01/04/18 10:21 01/04/18 10:21 Intake & Output 01/03/18 01/04/18 01/05/18 05:59 05:59 05:59 Intake Total 427 1421 0 Output Total 2200 3400 1100 Balance -1773 -1979 -1100 Weight 142 lb 6.698 oz 139 lb 1.787 oz General appearance: PRESENT: no acute distress Respiratory exam: PRESENT: clear to auscultation chetna Cardiovascular exam: PRESENT: RRR GI/Abdominal exam: PRESENT: soft. ABSENT: tenderness Neurological exam: PRESENT: alert Psychiatric exam: PRESENT: appropriate affect Skin exam: PRESENT: warm Results Laboratory Results: 01/04/18 04:49 01/04/18 04:49 01/04/18 01/04/18 04:49 04:49 WBC 4.2 RBC 3.25 L Hgb 8.9 L Hct 26.2 L MCV 81 MCH 27.4 MCHC 33.9 RDW 16.9 H Plt Count 140 L Sodium 145.0 Potassium 4.3 Chloride 106 Carbon Dioxide 30 Anion Gap 9 BUN 9 Creatinine 0.55 Est GFR ( Amer) > 60 Est GFR (Non-Af Amer) > 60 Glucose 120 H Calcium 8.9 Phosphorus 3.4 Magnesium 2.0 Albumin 3.1 L 01/03/18 01/03/18 01/04/18 22:45 22:45 04:49 Creatine Kinase 38 35 CK-MB (CK-2) 0.49 Troponin I < 0.012 01/04/18 04:49 Creatine Kinase CK-MB (CK-2) 0.45 Troponin I < 0.012 Qualifiers - * PATIENT BEING DISCHARGED WITH ANY OF THE FOLLOWING DIAGNOSIS: No
== END 2018-01-04 10:30 | disposition home or self-care (01) | DRG 378 ==
LOC: ER 01:44 → EH 06:02 → ICU 10:08
PROVIDERS: ADMIT Internal Medicine; ATTEND Internal Medicine
PROC: 30233N1 Transfusion of Nonautologous Red Blood Cells into Peripheral Vein, Percutaneous Approach (ICD-10-PCS; 2018-01-02)
PROC: 3E0F73Z Introduction of Anti-inflammatory into Respiratory Tract, Via Natural or Artificial Opening (ICD-10-PCS; 2018-01-02)
PROC: 0W3P8ZZ Control Bleeding in Gastrointestinal Tract, Via Natural or Artificial Opening Endoscopic (ICD-10-PCS; principal; 2018-01-02 11:00)
DX: K28.4 Chronic or unspecified gastrojejunal ulcer with hemorrhage (principal); I47.1 Supraventricular tachycardia; E78.00 Pure hypercholesterolemia, unspecified; I10 Essential (primary) hypertension; E03.9 Hypothyroidism, unspecified; I25.10 Atherosclerotic heart disease of native coronary artery without angina pectoris; E11.9 Type 2 diabetes mellitus without complications; K21.9 Gastro-esophageal reflux disease without esophagitis; F32.9 Major depressive disorder, single episode, unspecified; D64.89 Other specified anemias; I25.2 Old myocardial infarction; Z79.82 Long term (current) use of aspirin; Z98.84 Bariatric surgery status; Z87.11 Personal history of peptic ulcer disease; Z79.899 Other long term (current) drug therapy; Z95.5 Presence of coronary angioplasty implant and graft; Z91.018 Allergy to other foods; Z90.49 Acquired absence of other specified parts of digestive tract; Z82.3 Family history of stroke; Z83.3 Family history of diabetes mellitus; Z82.49 Family history of ischemic heart disease and other diseases of the circulatory system; Z80.9 Family history of malignant neoplasm, unspecified; Z83.49 Family history of other endocrine, nutritional and metabolic diseases
CPT/HCPCS: 36415; 36430; 43236; 80048; 80053; 80069; 82550; 82553; 83735; 84100; 84443; 84484; 85025; 85027; 86850; 86870; 86900; 86901; 86902; 86920; 86922; 93005; 93010; 96361; 96365; 96366; 96376; 99291; J0171; J1200; J1610; J2250; J2310; J2405; J3010; J3490; J7030; J7050; P9016; S0164

== ENCOUNTER 2018-01-22 07:14 | Day surgery (SDC) | payer BC ==
[~2018-01-22 07:14] MED LIST changes: +EPINEPHRINE INJ/PF 1 MG/1 ML AMPULE ONE; +KETOROLAC TROMETHAMINE 0.45% 4 DROP/0.4 ML DROPERETTE OS PRN; -PROPOFOL INJ 200 MG/20 ML VIAL IV ONE
[2018-01-22] MEDS ORDERED: LIDOCAINE 1% INJ-PF (10 MG/ML) 30 ML SDV ONE (07:15)
[2018-01-22] MEDS ORDERED: CHONDR SU A NA/HYALUR INTRAOC KIT (SURGICARE) ONE (07:15)
[2018-01-22] MEDS: BESIFLOXACIN HCL 0.6% OPH SUSP 5 ML BOTTLE OS PRN ×4 (08:29→09:24)
[2018-01-22] MEDS: TROPICAMIDE 1% OPH SOLN 3 ML OS PRN ×3 (08:29→08:49)
[2018-01-22] MEDS: CYCLOPENTOLATE 0.2%/PHENYLEPHRINE 1% OPH SOLN 2 ML OS PRN ×3 (08:29→08:49)
[2018-01-22] MEDS: TETRACAINE HCL 0.5% OPH SOLN 2 ML OS PRN ×3 (08:30→09:01)
[2018-01-22] MEDS ORDERED: MIDAZOLAM 2 MG/2 ML INJ ONE (08:42)
[2018-01-22] MEDS ORDERED: FENTANYL CITRATE INJ/PF 100 MCG/2 ML AMPUL ONE (08:42)
[2018-01-22] MEDS ORDERED: LIDOCAINE 1%/PHENYLEPHRINE 1.5% 1 ML VIAL ONE (09:13)
--- NOTE | 2018-01-22 14:52 | [facility] OPERATIVE REPORT E ---
[facility] Operative Report NAME: ANUPAM PEACE AGE: 62Y DATE OF SURGERY: 01/22/2018 ROOM: PREOPERATIVE DIAGNOSIS: CATARACT, LEFT EYE. POSTOPERATIVE DIAGNOSIS: CATARACT, LEFT EYE. OPERATION: Cataract extraction with toric IOL of the left eye. SURGEON: CHIQUITA HANSON M.D. ANESTHESIA: Topical. PROCEDURE: After obtaining appropriate consent, the patient's left eye was prepped and draped in sterile fashion as well as the surgeon in a sterile manner and cataract surgery was started. First a paracentesis blade was used to make a side-port incision. Viscoelastic was used to inflate the anterior chamber. Next a 2.4 mm incision was made with a 2.4 mm blade, clear corneal temporally. A continuous capsulorrhexis was made using a cystotome and Utrata forceps. Following this hydrodissection was carried out to make the lens fully loose and mobile and it was rotated 90 degrees. Following this, a [id number] technique was used to phacoemulsify the lens with a CDE of 6.08. The remaining cortex was removed with irrigation/aspiration. Provisc was instilled into the capsular bag to inflate the bag. A 21.0 SN6AT4 lens rotated to 173 [address] was [address]. The remaining viscoelastic material was removed with irrigation/aspiration. Following this, the incision was found to be watertight. Besivance was instilled into the eye and a protective shield was placed over the eye. The patient returned to the postoperative recovery in stable condition. DICTATING PHYSICIAN: CHIQUITA HANSON M.D. [id number] PHY#: [id number] ID: [id number] JOB#: [id number] ACCT: [id number] cc:CHIQUITA HANSON M.D. >
--- NOTE | 2018-01-22 14:54 | [facility] DISCHARGE SUMMARY E ---
[facility] Discharge Summary NAME: ANUPAM PEACE AGE: 62Y ADMITTED: 01/22/2018 DISCHARGED: 01/22/2018 DIAGNOSIS: Cataract, left eye. SUMMARY: This is a 62-year-old female who underwent cataract extraction with toric IOL of the left eye. She underwent surgery because she was having increased glare at nighttime causing difficulty to drive. DISCHARGE INSTRUCTIONS: Patient should be on a regular diet, no bending at the waist, and no heavy lifting. She should use her Besivance, Ilevro and Durezol at 3 p.m. and 8 p.m. and sleep with a rigid shield. I will see her for her 1-day postoperative tomorrow. DICTATING PHYSICIAN: CHIQUITA HANSON M.D. [id number] PHY#: [id number] ID: [id number] JOB#: [id number] ACCT: [id number] cc:CHIQUITA HANSON M.D. >
== END 2018-01-22 10:05 | disposition home or self-care (01) ==
LOC: SC 07:14
PROVIDERS: ATTEND Internal Medicine
DX: H25.813 Combined forms of age-related cataract, bilateral (principal); E11.9 Type 2 diabetes mellitus without complications; I25.2 Old myocardial infarction
CPT/HCPCS: 66984; V2787; J2250; J3490 ×2; J0171; J3010; J2370; 142

== ENCOUNTER 2018-02-21 09:03 | Day surgery (SDC) | payer BC ==
[~2018-02-21 09:03] MED LIST changes: -EPINEPHRINE INJ/PF 1 MG/1 ML AMPULE ONE; +KETOROLAC TROMETHAMINE 0.45% 4 DROP/0.4 ML DROPERETTE OD PRN; -KETOROLAC TROMETHAMINE 0.45% 4 DROP/0.4 ML DROPERETTE OS PRN
[2018-02-21] MEDS: TETRACAINE HCL 0.5% OPH SOLN 2 ML OD PRN ×3 (09:55→10:36)
[2018-02-21] MEDS: TROPICAMIDE 1% OPH SOLN 3 ML OD PRN ×3 (09:56→10:22)
[2018-02-21] MEDS: BESIFLOXACIN HCL 0.6% OPH SUSP 5 ML BOTTLE OD PRN ×4 (09:56→11:03)
[2018-02-21] MEDS: CYCLOPENTOLATE 0.2%/PHENYLEPHRINE 1% OPH SOLN 2 ML OD PRN ×3 (09:56→10:22)
[2018-02-21] MEDS ORDERED: EPINEPHRINE INJ/PF 1 MG/1 ML AMPULE ONE (10:07)
[2018-02-21] MEDS ORDERED: CHONDR SU A NA/HYALUR INTRAOC KIT (SURGICARE) ONE (10:07)
[2018-02-21] MEDS ORDERED: LIDOCAINE 1% INJ-PF (10 MG/ML) 30 ML SDV ONE (10:07)
[2018-02-21] MEDS ORDERED: MIDAZOLAM 2 MG/2 ML INJ ONE ×2 (10:16)
--- NOTE | 2018-02-21 19:21 | [facility] DISCHARGE SUMMARY E ---
[facility] Discharge Summary NAME: ANUPAM PEACE AGE: 62Y ADMITTED: 02/21/2018 DISCHARGED: 02/21/2018 HOSPITAL COURSE: This is a 62-year-old female who underwent cataract extraction of the right eye. DIAGNOSIS: CATARACT, RIGHT EYE. She underwent surgery because she was having difficulty seeing road signs and making out small print. DISCHARGE INSTRUCTIONS: She should be on a regular diet. No bending at her waist, no heavy lifting. She should use her Besivance, Ilevro, and Durezol at 3 p.m. and 8 p.m. and sleep with a rigid shield. I will see her for her 1 day postoperative tomorrow. DICTATING PHYSICIAN: CHIQUITA HANSON M.D. [id number] PHY#: [id number] ID: [id number] JOB#: [id number] ACCT: [id number] cc:CHIQUITA HANSON M.D. >
--- NOTE | 2018-02-21 19:21 | [facility] OPERATIVE REPORT E ---
[facility] Operative Report NAME: ANUPAM PEACE AGE: 62Y DATE OF SURGERY: 02/21/2018 ROOM: PREOPERATIVE DIAGNOSIS: CATARACT, RIGHT EYE. POSTOPERATIVE DIAGNOSIS: CATARACT, RIGHT EYE. OPERATION: Cataract extraction with insertion of a Toric IOL of the right eye. SURGEON: CHIQUITA HANSON M.D. ANESTHESIA: Topical. PROCEDURE: After obtaining appropriate consent, the patient's right eye was prepped and draped in sterile fashion as well as the surgeon in a sterile manner and cataract surgery was started. First a paracentesis blade was used to make a side-port incision. Viscoelastic was used to inflate the anterior chamber. Next a 2.4 mm incision was made with a 2.4 mm blade, clear corneal temporally. A continuous capsulorrhexis was made using a cystotome and Utrata forceps. Following this hydrodissection was carried out to make the lens fully loose and mobile and it was rotated to 180 degrees. Following this, a rpxvko-phl-yfmfvin technique was used to phacoemulsify the lens with a CDE of 12.03. The remaining cortex was removed with irrigation/aspiration. Provisc was instilled into the capsular bag to inflate the bag. A SN6AT3, 21.0 diopter lens was placed at 180 degrees. The remaining viscoelastic material was removed with irrigation/aspiration. Following this, the incision was found to be watertight. Besivance was instilled into the eye and a protective shield was placed over the eye. The patient returned to the postoperative recovery in stable condition. DICTATING PHYSICIAN: CHIQUITA HANSON M.D. [id number] PHY#: [id number] ID: [id number] JOB#: [id number] ACCT: [id number] cc:CHIQUITA HANSON M.D. > MTDAnthony
== END 2018-02-21 11:41 | disposition home or self-care (01) ==
LOC: SC 09:03
PROVIDERS: ATTEND Internal Medicine
DX: H25.811 Combined forms of age-related cataract, right eye (principal); Z96.1 Presence of intraocular lens; I10 Essential (primary) hypertension; E11.9 Type 2 diabetes mellitus without complications; D64.9 Anemia, unspecified; E07.9 Disorder of thyroid, unspecified; R00.2 Palpitations; I25.2 Old myocardial infarction; Z79.899 Other long term (current) drug therapy; Z79.82 Long term (current) use of aspirin
CPT/HCPCS: 66984; 82962; V2787; J2250; J3490 ×2; J0171; 142

== ENCOUNTER → 2018-06-14 | Outpatient (CLI) | payer BC ==
[2018-06-14 11:31] LABS: ABSOLUTE EOSINOPHILS # (AUTO) 0.1 10^3/uL (0.0-0.6); ABSOLUTE LYMPHOCYTES (AUTO) 0.7 10^3/uL (0.5-4.7); ABSOLUTE MONOCYTES (AUTO) 0.6 10^3/uL (0.1-1.4); ABSOLUTE NEUT (AUTO) 2.9 10^3/uL (1.7-8.2); BASOPHILS % (AUTO) 0.9 % (0-2); EOSINOPHILS % (AUTO) 2.8 % (0-6); HEMATOCRIT 35.3 % (36.0-47.0); HEMOGLOBIN 12.2 g/dL (12.0-15.5); LYMPHOCYTES % (AUTO) 16.8 % (13-45); MEAN CORPUSCULAR HEMOGLOBIN 30.6 pg (27.0-33.4); MEAN CORPUSCULAR HGB CONC 34.7 g/dL (32.0-36.0); MEAN CORPUSCULAR VOLUME 88 fl (80-97); MONOCYTES % (AUTO) 13.8 % (3-13); PLATELET COUNT 189 10^3/uL (150-450); RED BLOOD COUNT 4.01 10^6/uL (3.72-5.28); RED CELL DISTRIBUTION WIDTH 14.3 % (11.5-14.0); SEGMENTED NEUTROPHILS % (AUTO) 65.7 % (42-78); TOTAL CELLS COUNTED % (AUTO) 100 %; WHITE BLOOD COUNT 4.4 10^3/uL (4.0-10.5)
[2018-06-14 11:36] LABS: INTERNATIONAL RATION (INR) 0.92; PROTHROMBIN TIME 12.9 SEC (11.4-15.4)
[2018-06-14 11:37] LABS: PARTIAL THROMBOPLASTIN TIME 26.6 SEC (23.5-35.8)
[2018-06-14 11:51] LABS: ALANINE AMINOTRANSFERASE 35 U/L (9-52); ALBUMIN 4.1 g/dL (3.5-5.0); ALKALINE PHOSPHATASE 83 U/L (38-126); ANION GAP 10 (5-19); ASPARTATE AMINO TRANSFERASE 27 U/L (14-36); BILIRUBIN,DIRECT 0.2 mg/dL (0.0-0.4); BLOOD UREA NITROGEN 20 mg/dL (7-20); CALCIUM 9.1 mg/dL (8.4-10.2); CARBON DIOXIDE 27 mmol/L (22-30); CHLORIDE 103 mmol/L (98-107); GLUCOSE 116 mg/dL (75-110); POTASSIUM 4.3 mmol/L (3.6-5.0); SODIUM 140.1 mmol/L (137-145); TOTAL PROTEIN 6.6 g/dL (6.3-8.2)
== END ==
LOC: OD 11:04
PROVIDERS: ATTEND Internal Medicine Cardiovascular Disease
DX: I25.10 Atherosclerotic heart disease of native coronary artery without angina pectoris (principal); R06.02 Shortness of breath; R07.9 Chest pain, unspecified
CPT/HCPCS: 36415; 80053; 83735; 85025; 85610; 85730

== ENCOUNTER 2018-08-05 07:59 | Day surgery (SDC) | payer BC ==
[~2018-08-05 07:59] MED LIST changes: -KETOROLAC TROMETHAMINE 0.45% 4 DROP/0.4 ML DROPERETTE OD PRN; +PROPOFOL INJ 200 MG/20 ML VIAL IV ONE
[2018-08-05 10:10] VITALS: BP 130/72
--- NOTE | 2018-08-05 14:49 | Operative Report ---
Operative Report DATE OF SURGERY: 08/05/18 Operative Report: The risks, benefits and alternatives of the procedure including the risks of bleeding, perforation requiring surgery are explained to the patient in detail and informed consent is obtained. The patient is brought back to the endoscopy suite and placed in the left, lateral decubital position. Timeout was called. Propofol medication is administered. A rectal examination is done which did not reveal any masses, tears or fissures. An Olympus videoscope was introduced into the patient's rectum. The scope was then carefully advanced all the way to the cecum. The cecum was identified by the usual anatomical landmarks including the ileocecal valve as well as the appendiceal office. Photodocumentation is obtained. The scope was then sequentially pulled back via the various segments of the colon including the ascending colon, hepatic flexure, transverse colon, splenic flexure, descending colon and finally into the rectosigmoid portions of the colon. Retroflexion maneuver is performed. The risks benefits and alternatives of the procedure explained to the patient in detail and informed consent is obtained.A GIF Olympus video scope was inserted into the patient's mouth and hypopharynx, the esophagus is identified intubated and insufflated, the scope was then advanced through the esophagus stomach and duodenum, retroflexion maneuver is done, the esophagus stomach and first and second portions of the duodenum examined PREOPERATIVE DIAGNOSIS: Personal history of ulcer at the anastomotic site for repeat evaluation. Colorectal cancer screening POSTOPERATIVE DIAGNOSIS: Ascending colon polyp that was removed and retrieved via snare polypectomy. Patient does have mild inflammation at the anastomotic site of her previous gastric bypass but no further ulceration is seen biopsies obtained OPERATION: Colonoscopy with snare polypectomy. EGD with biopsy SURGEON: TOMMY WATT ANESTHESIA: LMAC TISSUE REMOVED OR ALTERED: As noted above. COMPLICATIONS: None. ESTIMATED BLOOD LOSS: None. INTRAOPERATIVE FINDINGS: As noted above. PROCEDURE: Patient tolerated the procedure well. No immediate postprocedure comp occasions are noted. Patient discharged in good condition. Discharge date 08/05/2018. Discharge diet: Regular. Discharge activity: Regular. 2-3-week follow-up to discuss findings. Patient is instructed to call the office or proceed to the emergency room should there be any further problems or questions. I will wait on the pathology. Colon Surveillance in 3-5 years
== END 2018-08-05 10:05 | disposition home or self-care (01) ==
LOC: END 07:59
PROVIDERS: ATTEND Internal Medicine Gastroenterology
DX: Z12.11 Encounter for screening for malignant neoplasm of colon (principal); D12.2 Benign neoplasm of ascending colon; K29.70 Gastritis, unspecified, without bleeding; Z87.11 Personal history of peptic ulcer disease; I25.2 Old myocardial infarction; I25.10 Atherosclerotic heart disease of native coronary artery without angina pectoris; J45.909 Unspecified asthma, uncomplicated; G47.33 Obstructive sleep apnea (adult) (pediatric); E11.9 Type 2 diabetes mellitus without complications; Z87.891 Personal history of nicotine dependence
CPT/HCPCS: 43239; 45385; 82962; 88305 ×2; J2704; 813

== ENCOUNTER 2019-05-23 00:40 | Observation (INO) | payer BC ==
[2019-05-23] MEDS ORDERED: NITROGLYCERIN 2% OINTMENT 1 GM PACKET TP ONE (00:58)
--- NOTE | 2019-05-23 01:03 | ER Document Report ---
ED General - General Chief Complaint: Chest Pain Stated Complaint: CHEST PAIN Time Seen by Provider: 05/23/19 00:50 TRAVEL OUTSIDE OF THE [place] IN LAST 30 DAYS: No - HPI Notes: 63-year-old female presents with chest pain. Patient has known history of cardiac disease with multiple stents, last stent was placed approximately 2 years ago in [facility], she is uncertain of the anatomic location. Tonight a round 10:30 PM she was resting when she had sudden onset substernal chest pain, rating her left arm with some associated nausea but no dilip diaphoresis. Feels like it did before when she had her "heart problems". No associated dyspnea. Severe intensity, 8 out of 10. Despite taking nitroglycerin at home, pain continued. She called EMS, pain is resolved on the way and with drains sublingual nitrates from EMS. She took 4 baby aspirin at home. No other modifying factors, no other associated symptoms, no other provocative or palliative factors. - Related Data Allergies/Adverse Reactions: coconut Allergy (Intermediate, Verified 08/01/18 10:25) THROAT SWELLING, HARD TO BREATHE Past Medical History - Social History Smoking Status: Unknown if Ever Smoked Drug Abuse: None Family History: Reviewed & Not Pertinent, CAD, CVA, DM, Hyperlipidemia, Hypertension, Malignancy, Thyroid Disfunction - Past Medical History Cardiac Medical History: Reports: Hx Coronary Artery Disease, Hx Heart Attack - 2011,JUL 2017, Hx Hypercholesterolemia, Hx Hypertension Pulmonary Medical History: Denies: Hx Asthma, Hx Bronchitis, Hx COPD, Hx Pneumonia Neurological Medical History: Denies: Hx Cerebrovascular Accident, Hx Seizures Endocrine Medical History: Reports: Hx Diabetes Mellitus Type 1, Hx Diabetes Mellitus Type 2 Renal/ Medical History: Denies: Hx Peritoneal Dialysis GI Medical History: Reports: Hx Gastroesophageal Reflux Disease, Hx Ulcer - AT ANASTOMOSIS SINCE GASTRIC BYPASS . Denies: Hx Hepatitis, Hx Hiatal Hernia Musculoskeletal Medical History: Denies Hx Arthritis Psychiatric Medical History: Reports: Hx Depression Infectious Medical History: Denies: Hx Hepatitis Past Surgical History: Reports: Hx Abdominal Surgery - gastric bypass, Hx Bowel Surgery - gastric bypass, Hx Cardiac Catheterization - stents, Hx Cholecystectomy, Hx Coronary Stent - 2001, Hx Gastric Bypass Surgery, Hx Tubal Ligation. Denies: Hx Hysterectomy, Hx Mastectomy, Hx Open Heart Surgery - [facility], Hx Pacemaker - Immunizations Immunizations up to date: Yes Hx Diphtheria, Pertussis, Tetanus Vaccination: Yes Hx Pneumococcal Vaccination: 08/27/09 Review of Systems - Review of Systems Notes: Review of systems as in the history of present illness, otherwise negative x 10 systems. Physical Exam - Vital signs Vitals: Pulse Ox 96 05/23/19 00:43 - Notes Notes: General: Well developed . HEENT: Normocephalic, atraumatic. Pupils equal round reactive to light. No JVD. Chest: No trauma. Respiratory: Good air exchange, normal excursion. Cardiac: Regular rhythm. No murmurs or gallops. Abdomen: Soft, benign. Nondistended. Nontender. Back: No asymmetry or gross abnormality. Motor: Grossly normal power and tone. Neurologic: Alert, nonfocal. Cranial nerves II-12 are intact. Sensation intact. Vascular: Well perfused. Normal peripheral pulses. Skin: No petechiae or purpura. Course - Re-evaluation Re-evalutation: 05/23/19 01:02 63-year-old female presents with chest pain, essentially resolved. High risk for unstable angina or acute coronary syndrome. Less likely but consider esophageal spasm, reflux, typical chest pain or pneumonia. Plan to proceed with laboratory evaluation, ECG, x-ray, transdermal nitrates, serial exams and rick ssess. Reviewed the patient's available records from [place] show her last stress test here in 2017, unremarkable. 05/23/19 02:25 Chest x-ray unremarkable. Patient has had marked improvement and continues to have no pain. ECG is nonischemic. Heart score is 6. Her last documented stress test is 2017. Patient is at substantially increased risk, will be admitted to the hospital service for rule out, possible provocative risk stratification. - Vital Signs Vital signs: Temp Pulse Resp BP Pulse Ox 9 L 193/97 H 97 05/23/19 00:47 05/23/19 00:47 05/23/19 00:49 - Laboratory Result Diagrams: 05/23/19 01:00 05/23/19 01:00 Laboratory results interpreted by me: 05/23/19 05/23/19 01:00 01:00 RDW 14.6 H [place] % (Auto) 14.1 H Glucose 130 H - EKG Interpretation by Wi EKG shows normal: Sinus rhythm, [place], Intervals, QRS Complexes - Nonspecific ST- T changes Discharge - Discharge Clinical Impression: Chest pain Qualifiers: Chest pain type: unspecified Qualified Code(s): R07.9 - Chest pain, unspecified Condition: Serious Disposition: ADMITTED OBSERVATION Admitting Provider: Saurabh (Hospitalist) Unit Admitted: Telemetry
[2019-05-23 01:17] LABS: ABSOLUTE BASOPHILS # (AUTO) 0.1 10^3/uL (0.0-0.2); ABSOLUTE EOSINOPHILS # (AUTO) 0.2 10^3/uL (0.0-0.6); ABSOLUTE LYMPHOCYTES (AUTO) 1.2 10^3/uL (0.5-4.7); ABSOLUTE MONOCYTES (AUTO) 0.7 10^3/uL (0.1-1.4); ABSOLUTE NEUT (AUTO) 2.5 10^3/uL (1.7-8.2); BASOPHILS % (AUTO) 1.2 % (0-2); EOSINOPHILS % (AUTO) 4.2 % (0-6); HEMATOCRIT 37.2 % (36.0-47.0); HEMOGLOBIN 12.5 g/dL (12.0-15.5); LYMPHOCYTES % (AUTO) 26.6 % (13-45); MEAN CORPUSCULAR HGB CONC 33.5 g/dL (32.0-36.0); MEAN CORPUSCULAR VOLUME 84 fl (80-97); MONOCYTES % (AUTO) 14.1 % (3-13); PLATELET COUNT 210 10^3/uL (150-450); RED BLOOD COUNT 4.44 10^6/uL (3.72-5.28); RED CELL DISTRIBUTION WIDTH 14.6 % (11.5-14.0); SEGMENTED NEUTROPHILS % (AUTO) 53.9 % (42-78); TOTAL CELLS COUNTED % (AUTO) 100 %; WHITE BLOOD COUNT 4.6 10^3/uL (4.0-10.5)
--- NOTE | 2019-05-23 01:23 | RADIOLOGY REPORT (SQ) ---
EXAM DESCRIPTION: XR CHEST 1 VIEW COMPLETED DATE/TME: 05/23/2019 00:49 CLINICAL HISTORY: 63 years Female, cp COMPARISON:Aug 15 2017 NUMBER OF VIEWS/TECHNIQUE: 1/AP FINDINGS: Adequate lung volume, minimal linear atelectasis or scar in the left lower lung field, normal cardiac silhouette, and intact bony thorax. IMPRESSION: No acute cardiopulmonary findings.
[2019-05-23 01:35] LABS: ALBUMIN 4.3 g/dL (3.5-5.0); ALKALINE PHOSPHATASE 90 U/L (38-126); ANION GAP 10 (5-19); ASPARTATE AMINO TRANSFERASE 25 U/L (14-36); BILIRUBIN,DIRECT 0.1 mg/dL (0.0-0.4); BILIRUBIN,TOTAL 0.5 mg/dL (0.2-1.3); BLOOD UREA NITROGEN 17 mg/dL (7-20); CALCIUM 9.5 mg/dL (8.4-10.2); CARBON DIOXIDE 27 mmol/L (22-30); CHLORIDE 105 mmol/L (98-107); CREATINE KINASE 74 U/L (30-135); GLUCOSE 130 mg/dL (75-110); POTASSIUM 3.7 mmol/L (3.6-5.0)
[2019-05-23 01:55] LABS: CREATINE KINASE MB 1.21 ng/mL (<4.55)
[2019-05-23 01:57] LABS: TROPONIN I < 0.012 ng/mL
[2019-05-23] MEDS ORDERED: ACETAMINOPHEN 325 MG TABLET PO PRN (02:28)
[2019-05-23] MEDS ORDERED: ENALAPRILAT DIHYDRATE INJ/PF 1.25 MG/1 ML SDV IV ONE (02:32)
[2019-05-23] MEDS ORDERED: ENALAPRILAT DIHYDRATE INJ/PF 1.25 MG/1 ML SDV IV PRN (02:32)
[2019-05-23] MEDS ORDERED: ATORVASTATIN CALCIUM 40 MG TABLET PO ONE (03:00)
[2019-05-23] MEDS: PANTOPRAZOLE SODIUM 40 MG TABLET.DR PO SCH (05:55)
--- NOTE | 2019-05-23 06:36 | PDOC H&P ---
History of Present Illness Admission Date/PCP: 05/23/19 02:53 Patient complains of: chest pain History of Present Illness: ANUPAM PEACE is a 63 year old female with a past medical history of diabetes, gastric bypass, peptic ulcer, coronary artery disease with stent on Brilinta and aspirin who presents with 2 hours of retrosternal chest pain aching in nature radiating to the left shoulder occurring at rest. It was increasing intensity with exertion alleviated by nitroglycerin and the pain resembled prior [place]. In the emergency room she is found to have hypertensive urgency in the 190 systolic range. She denies recent change in medication regiment but admits to exceptional social stressors as her son 2 weeks ago and is undergoing an eminent move and marriage. She denies excessive caffeine, energy drinks or supplements. Her last Cardiolite stress test was 2 years ago. Her nurse ldr is Dr. Daniels. Past Medical History Cardiac Medical History: Reports: Coronary Artery Disease, Myocardial Infarction - 2011,JUL 2017, Hyperlipidema, Hypertension Pulmonary Medical History: Denies: Asthma, Bronchitis, Chronic Obstructive Pulmonary Disease (COPD), Pneumonia Neurological Medical History: Denies: Seizures Endocrine Medical History: Reports: Diabetes Mellitus Type 1, Diabetes Mellitus Type 2 GI Medical History: Reports: Gastroesophageal Reflux Disease Denies: Hepatitis, Hiatal Hernia Musculoskeltal Medical History: Denies: Arthritis Psychiatric Medical History: Reports: Depression Denies: Alcohol Dependency, Tobacco Dependency Hematology: Reports: Anemia - HAS REFERRAL TO PUBLIC SERVICE OFFICER NEXT WEEK Denies: Sickle Cell Disease Past Surgical History Past Surgical History: Reports: Cardiac Catheterization - stents, Cholecystectomy, Coronary Stent - 2001, Gastric Bypass Surgery, Tubal Ligation Denies: Amputation, Hysterectomy, Mastectomy, Pacemaker Social History Information Source: Patient Lives with: Spouse/Significant other Smoking Status: Unknown if Ever Smoked Frequency of Alcohol Use: Social Hx Recreational Drug Use: No Drugs: None Hx Prescription Drug Abuse: No - Advance Directive Resuscitation Status: Full Code Family History Family History: CAD, CVA, DM, Hyperlipidemia, Hypertension, Malignancy, Thyroid Disfunction Parental Family History Reviewed: Yes Children Family History Reviewed: Yes Sibling(s) Family History Reviewed.: Yes Medication/Allergy Home Medications: Atorvastatin Calcium [Lipitor 80 mg Tablet] 80 mg PO QHS 01/02/18 Carvedilol [Coreg 12.5 mg Tablet] 12.5 mg PO Q12 01/02/18 Cholecalciferol (Vitamin D3) [Vitamin D3 1000 Unit Tablet] 1,000 unit PO DAILY 01/02/18 Cyanocobalamin (Vitamin B-12) [Vitamin B-12 1000 mcg Tablet] 5,000 mcg PO DAILY 01/02/18 Escitalopram Oxalate 10 mg PO QHS 01/02/18 Levothyroxine Sodium [Synthroid 0.088 mg Tablet] 0.088 mg PO DAILY 01/02/18 Lisinopril 10 mg PO QAM 01/02/18 Multivitamin [Tab-A-Amparo (Multiple Vitamin) Tablet] 1 tab PO DAILY 01/02/18 Lansoprazole [Prevacid 30 mg Odt Tablet] 60 mg PO BID #60 tab.rap.dr 01/04/18 Ferrous Sulfate [Feosol 325 mg Tablet] 325 mg PO BID 01/16/18 Ticagrelor [Brilinta] 90 mg PO BID 01/16/18 Ranolazine [Ranexa 500 mg Tab.sr] 500 mg PO Q12 08/01/18 Allergies/Adverse Reactions: coconut Allergy (Intermediate, Verified 08/01/18 10:25) THROAT SWELLING, HARD TO BREATHE Review of Systems Constitutional: ABSENT: chills, fever(s), headache(s), weight gain, weight loss Eyes: ABSENT: visual disturbances Ears: ABSENT: hearing changes Cardiovascular: ABSENT: chest pain, dyspnea on exertion, edema, orthropnea, palpitations Respiratory: ABSENT: cough, hemoptysis Gastrointestinal: ABSENT: abdominal pain, constipation, diarrhea, hematemesis, hematochezia, nausea, vomiting Genitourinary: ABSENT: dysuria, hematuria Musculoskeletal: ABSENT: joint swelling Integumentary: ABSENT: rash, wounds Neurological: ABSENT: abnormal gait, abnormal speech, confusion, dizziness, focal weakness, syncope Psychiatric: ABSENT: anxiety, depression, homidical ideation, suicidal ideation Endocrine: ABSENT: cold intolerance, heat intolerance, polydipsia, polyuria Hematologic/Lymphatic: ABSENT: easy bleeding, easy bruising Physical Exam Vital Signs: Temp Pulse Resp BP Pulse Ox 13 128/52 H 94 05/23/19 06:02 05/23/19 06:02 05/23/19 06:02 Intake & Output 05/21/19 05/22/19 05/23/19 11:59 11:59 11:59 Weight 68.674 kg General appearance: PRESENT: no acute distress, well-developed, well-nourished Head exam: PRESENT: atraumatic, normocephalic Eye exam: PRESENT: conjunctiva pink, EOMI, PERRLA. ABSENT: scleral icterus Ear exam: PRESENT: normal external ear exam Mouth exam: PRESENT: moist, tongue midline Neck exam: ABSENT: carotid bruit, JVD, lymphadenopathy, thyromegaly Respiratory exam: PRESENT: clear to auscultation chetna. ABSENT: rales, rhonchi, wheezes Cardiovascular exam: PRESENT: RRR. ABSENT: diastolic murmur, rubs, systolic murmur Pulses: PRESENT: normal dorsalis pedis pul Vascular exam: PRESENT: normal capillary refill GI/Abdominal exam: PRESENT: normal bowel sounds, soft. ABSENT: distended, guarding, mass, organolmegaly, rebound, tenderness Rectal exam: PRESENT: deferred Extremities exam: PRESENT: full ROM. ABSENT: calf tenderness, clubbing, pedal edema Neurological exam: PRESENT: alert, awake, oriented to person, oriented to place, oriented to time, oriented to situation, CN II-XII grossly intact. ABSENT: motor sensory deficit Psychiatric exam: PRESENT: appropriate affect, normal mood. ABSENT: homicidal ideation, suicidal ideation Skin exam: PRESENT: dry, intact, warm. ABSENT: cyanosis, rash Results Laboratory Results: 05/23/19 01:00 05/23/19 01:00 05/23/19 05/23/19 05/23/19 01:00 01:00 01:00 WBC 4.6 RBC 4.44 Hgb 12.5 Hct 37.2 MCV 84 MCH 28.0 MCHC 33.5 RDW 14.6 H Plt Count 210 Seg Neutrophils % 53.9 Sodium 141.5 Potassium 3.7 Chloride 105 Carbon Dioxide 27 Anion Gap 10 BUN 17 Creatinine 0.75 Est GFR ( Amer) > 60 Glucose 130 H Calcium 9.5 Total Bilirubin 0.5 AST 25 Alkaline Phosphatase 90 Total Protein 7.0 Albumin 4.3 TSH 1.18 05/23/19 05/23/19 05/23/19 01:00 01:00 01:00 Creatine Kinase 74 CK-MB (CK-2) 1.21 Troponin I < 0.012 NT-Pro-B Natriuret Pep 170 Impressions: Chest X-Ray 05/23/19 00:49 IMPRESSION: No acute cardiopulmonary findings. Assessment and Plan - Diagnosis (1) Hypertensive urgency Is this a current diagnosis for this admission?: Yes Plan: Improved, likely secondary to adjustment disorder as patient describes excessive social stressors. Consider SSRI in addition to a hypertensive regiment. (2) Adjustment disorder Is this a current diagnosis for this admission?: Yes Plan: Grief, exceptional social stressors, consider SSRI. (3) Chest pain Qualifiers: Chest pain type: unspecified Qualified Code(s): R07.9 - Chest pain, unspecified Is this a current diagnosis for this admission?: Yes Plan: Chest pain with coronary artery disease comp located by hypertensive urgency and adjustment disorder. chest pain observe and evaluation of acute coronary syndrome versus coronary artery disease with anginal equivalents. Cardiac monitoring blood pressure Q6 hours ,TSH, lipid profile, serial cardiac enzymes and cardiac stress test consider consult with her nurse ldr Dr. Daniels. - Time Time Spent with patient: 25-34 minutes
[2019-05-23 07:05] LABS: CHOLESTEROL 117.85 mg/dL (0-200); TRIGLYCERIDES 69 mg/dL (<150)
[2019-05-23 07:15] LABS: DIRECT LDL 55 mg/dL (<100)
[2019-05-23] MEDS ORDERED: RANOLAZINE 500 MG TAB.SR.12H PO SCH (10:00)
[2019-05-23] MEDS ORDERED: MAG HYDROX/AL HYDROX/SIMETH SUSP 30 ML UDCUP PO ONE (11:30)
[2019-05-23] MEDS ORDERED: MAG HYDROX/AL HYDROX/SIMETH SUSP 30 ML UDCUP PO PRN (11:30)
[2019-05-23] MEDS ORDERED: METOCLOPRAMIDE HCL ORAL SOLN 10 MG/10 ML UDCUP PO ONE (11:30)
[2019-05-23] MEDS ORDERED: LIDOCAINE 2% VISCOUS SOLN 20 ML UDCUP PO ONE (11:30)
--- NOTE | 2019-05-23 12:20 | PDOC PROGRESS REPORT ---
Subjective Progress Note for:: 05/23/19 Subjective:: Patient well-known to me from previous outpatient visits. Patient has known history of coronary artery disease with prior stent placement. Patient also has history of gastric bypass with subsequent marginal ulcers. Patient claims that she was watching TV when all of a sudden she started having central chest discomfort she describes as tightness. There was no radiation. It lasted for at least 1-1 and half hours. Patient took 2 nitroglycerin sublingual. Since it did not resolve, she came to the emergency room. It then gradually resolved. There has been no recurrence so far. Cardiac enzymes x2 has been negative. I been asked to evaluate patient. Patient tells me that she is under tremendous amount of mental stress. Patient lost her few years ago. Few months ago she lost her son. She is also in the process of moving as her house has to be vacated for a widening of the road. Reason For Visit: CAD,CHEST PAIN,DM Physical Exam Vital Signs: Temp Pulse Resp BP Pulse Ox 97.9 F 54 L 17 159/71 H 95 05/23/19 10:18 05/23/19 10:27 05/23/19 10:18 05/23/19 10:18 05/23/19 10:18 Intake & Output 05/22/19 05/23/19 05/24/19 06:59 06:59 06:59 Weight 68.674 kg Exam: GENERAL: well-nourished and in no acute distress. Alert and oriented x3 HEAD: Atraumatic, normocephalic. EYES: BIRD, sclera anicteric, conjunctiva are normal. ENT: Moist mucous membranes. No oral ulcerations or bleeding gums noted. No obvious ear, nose or throat abnormalities noted. NECK: supple without lymphadenopathy. Trachea is central. No cervical or axillary lymphadenopathy noted. Carotids are 2+, JVD WNL LUNGS: Breath sounds clear bilaterally. No wheezes rales or rhonchi noted. No significant dullness noted on percussion. CHEST: Palpation of the chest wall shows no significant chest wall tenderness. 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 ABDOMEN: Soft, no significant tenderness appreciated, normoactive bowel sounds. No guarding, no rebound. No rigidity noted . No masses appreciated. EXTREMITIES: Pedal pulses are 1-2+, no calf tenderness noted. No clubbing or cyanosis. negative pedal edema noted NEUROLOGICAL: Focused neurological exam showed no significant neurologic deficit. Normal speech, no focal weakness appreciated. PSYCH: Normal mood, normal affect. Judgment and insight within normal limits. SKIN: No significant ecchymosis, skin is noted to be warm. MUSCULOSKELETAL EXAM: No significant acute joint swelling noted. Results Laboratory Results: 05/23/19 01:00 05/23/19 01:00 05/23/19 05/23/19 05/23/19 01:00 01:00 01:00 WBC 4.6 RBC 4.44 Hgb 12.5 Hct 37.2 MCV 84 MCH 28.0 MCHC 33.5 RDW 14.6 H Plt Count 210 Seg Neutrophils % 53.9 Sodium 141.5 Potassium 3.7 Chloride 105 Carbon Dioxide 27 Anion Gap 10 BUN 17 Creatinine 0.75 Est GFR ( Amer) > 60 Glucose 130 H Calcium 9.5 Total Bilirubin 0.5 AST 25 Alkaline Phosphatase 90 Total Protein 7.0 Albumin 4.3 Triglycerides Cholesterol LDL Cholesterol Direct VLDL Cholesterol HDL Cholesterol TSH 1.18 05/23/19 06:34 WBC RBC Hgb Hct MCV MCH MCHC RDW Plt Count Seg Neutrophils % Sodium Potassium Chloride Carbon Dioxide Anion Gap BUN Creatinine Est GFR ( Amer) Glucose Calcium Total Bilirubin AST Alkaline Phosphatase Total Protein Albumin Triglycerides 69 Cholesterol 117.85 LDL Cholesterol Direct 55 VLDL Cholesterol 14.0 HDL Cholesterol 57 TSH 05/23/19 05/23/19 05/23/19 01:00 01:00 01:00 Creatine Kinase 74 CK-MB (CK-2) 1.21 Troponin I < 0.012 NT-Pro-B Natriuret Pep 170 05/23/19 05/23/19 06:34 09:30 Creatine Kinase CK-MB (CK-2) Troponin I < 0.012 < 0.012 NT-Pro-B Natriuret Pep EKG Comments: Not available in the system for review. Have ordered 1. Impressions: Chest X-Ray 05/23/19 00:49 IMPRESSION: No acute cardiopulmonary findings. Assessment & Plan - Diagnosis (1) Chest pain Qualifiers: Chest pain type: unspecified Qualified Code(s): R07.9 - Chest pain, unspecified Is this a current diagnosis for this admission?: Yes (2) Hypertensive urgency Is this a current diagnosis for this admission?: Yes (3) CAD (coronary artery disease) Qualifiers: Coronary Disease-Associated Artery/Lesion type: unspecified vessel or lesion type Associated angina: angina presence unspecified Is this a current diagnosis for this admission?: Yes (4) Hyperlipidemia Qualifiers: Hyperlipidemia type: unspecified Qualified Code(s): E78.5 - Hyperlipidemia, unspecified Is this a current diagnosis for this admission?: Yes (5) Hypertension Qualifiers: Hypertension type: essential hypertension Qualified Code(s): I10 - Essential (primary) hypertension Is this a current diagnosis for this admission?: Yes - Notes Notes: Patient presents with chest pain. There are multiple differential diagnosis. Patient would benefit from ruling out protocol. Patient could be having anxiety panic disorder, gastroesophageal reflux and course unstable angina. Myocardial infarction has been ruled out. At this point recommend optimizing medical management. If patient remains stable, she could be discharged with close cardiology follow-up. If patient has any recurrent chest pain or any bump in troponin I, would recommend transfer to tertiary care for heart catheterization. Patient prefers to go to [facility] where all her interventions have been performed in the past. Have advised hospitalist to start patient on Ranexa, continue all her home medication. Patient normally has some bradycardia so unless heart rate is below 50, would not hold any medication. Patient has history of a lot of GI issues. Request Dr. kinney journalists and other writers for at least a consultation or outpatient referral. Patient may benefit from anxiolytics. Patient other medical problems seems reasonably stable and well managed by hospitalist. - Time Time with patient: Greater than 35 minutes - More than 50% of the time spent coordinating care, discussing management plans with involved caregivers. Management plans discussed with involved personnels. Medical decision making was of moderate to high complexity, patient's has multiple comorbidities. Medications reviewed and adjusted accordingly: Yes
--- NOTE | 2019-05-23 18:59 | Progress Note ---
Provider Note Provider Note: ANUPAM PEACE is a 63 year old female with a past medical history of diabetes, gastric bypass, peptic ulcer, coronary artery disease with stent admitted early this morning by the JOB ORDER CLERK. Overnight events, vital signs, imagining, laboratory results and orders reviewed. Agree with plan of care as established by the previous provider. Discussed the patient's case with her established non ferrous material handler, Dr. Daniels. Will observe x24 hours and escalate treatment for reflux symptoms. If remains CP free without concerning signs on telemetry/EKG or troponin increase, patient can be d/c'd home with follow up in his office on Sunday. Have already arranged for outpatient follow up visit with Dr. Mora on 06/04. We do not have inpatient GI services available this week. Patient declines increase in Lexapro or addition of anti-anxiety medications. Will have Vistaril available if needed.
[2019-05-23] MEDS ORDERED: CITALOPRAM HYDROBROMIDE 20 MG TABLET PO SCH (22:00)
[2019-05-23] MEDS ORDERED: ATORVASTATIN CALCIUM 40 MG TABLET PO SCH (22:00)
[2019-05-23] MEDS ORDERED: CARVEDILOL 12.5 MG TABLET PO SCH (22:00)
[2019-05-23] MEDS ORDERED: LISINOPRIL 10 MG TABLET PO SCH (22:00)
[2019-05-23] MEDS ORDERED: ATORVASTATIN CALCIUM 80 MG TABLET PO SCH (22:00)
[2019-05-23] MEDS ORDERED: (PENDING PHARMACY ID) (Citalopram Hydrobromide [Celexa 10 Mg Tablet] 10 MG) PO SCH (22:00)
[2019-05-23] MEDS: RANOLAZINE 500 MG TAB.SR.12H PO SCH (22:53)
[2019-05-24] MEDS: PANTOPRAZOLE SODIUM 40 MG TABLET.DR PO SCH (05:20)
[2019-05-24] MEDS ORDERED: LEVOTHYROXINE SODIUM 0.088 MG TABLET PO SCH (06:00)
[2019-05-24] MEDS ORDERED: CARVEDILOL 12.5 MG TABLET PO SCH (08:00)
--- NOTE | 2019-05-24 08:59 | EKG REPORT ---
SEVERITY:- BORDERLINE ECG - SINUS RHYTHM BORDERLINE T ABNORMALITIES, ANTERIOR LEADS : Confirmed by: Rosalia Daniels 24-May-2019 08:59:22
--- NOTE | 2019-05-24 08:59 | EKG REPORT ---
SEVERITY:- NORMAL ECG - SINUS RHYTHM : Confirmed by: Rosalia Daniels 24-May-2019 08:59:13
--- NOTE | 2019-05-24 09:00 | EKG REPORT ---
SEVERITY:- BORDERLINE ECG - SINUS RHYTHM BORDERLINE R WAVE PROGRESSION, ANTERIOR LEADS BORDERLINE T ABNORMALITIES, INFERIOR LEADS : Confirmed by: Rosalia Daniels 24-May-2019 08:59:36
[2019-05-24] MEDS: RANOLAZINE 500 MG TAB.SR.12H PO SCH (09:07)
[2019-05-24] MEDS ORDERED: (PENDING PHARMACY ID) (Cyanocobalamin (Vitamin B-12) [Vitamin B12] 2,500 MCG) SL SCH (10:00)
[2019-05-24] MEDS ORDERED: CYANOCOBALAMIN (VITAMIN B-12) 1,000 MCG TABLET PO SCH (10:00)
[2019-05-24] MEDS ORDERED: TICAGRELOR 90 MG TABLET PO SCH (10:00)
[2019-05-24] MEDS ORDERED: MULTIVITAMIN TABLET PO SCH (10:00)
[2019-05-24] MEDS ORDERED: ASPIRIN 81 MG TABLET, ENT COATED PO SCH (10:00)
[2019-05-24] MEDS ORDERED: (PENDING PHARMACY ID) (Cetirizine Hcl [Zyrtec] 10 MG) PO SCH (10:00)
[2019-05-24] MEDS ORDERED: CETIRIZINE 10 MG TABLET PO SCH (10:00)
[2019-05-24 10:05] LABS: HEMATOCRIT 36.9 % (36.0-47.0); HEMOGLOBIN 12.2 g/dL (12.0-15.5); MEAN CORPUSCULAR HEMOGLOBIN 27.9 pg (27.0-33.4); MEAN CORPUSCULAR HGB CONC 33.2 g/dL (32.0-36.0); MEAN CORPUSCULAR VOLUME 84 fl (80-97); PLATELET COUNT 175 10^3/uL (150-450); RED BLOOD COUNT 4.39 10^6/uL (3.72-5.28); RED CELL DISTRIBUTION WIDTH 14.3 % (11.5-14.0); WHITE BLOOD COUNT 3.7 10^3/uL (4.0-10.5)
[2019-05-24 12:57] VITALS: BP 159/71
--- NOTE | 2019-05-24 18:36 | PDOC DISCHARGE SUMMARY ---
Impression - Admit/DC Date/PCP Admission Date/Primary Care Provider: 05/23/19 02:53 Discharge Date: 05/24/19 - Discharge Diagnosis (1) Adjustment disorder Is this a current diagnosis for this admission?: Yes (2) Chest pain Is this a current diagnosis for this admission?: Yes (3) Hypertensive urgency Is this a current diagnosis for this admission?: Yes - Additional Information Resuscitation Status: Full Code Discharge Diet: Cardiac Discharge Activity: Activity As Tolerated, Balance Activity w/Rest Referrals: TOMMY MORA MD [ACTIVE STAFF] - 06/04/19 1:45 pm SHARAD DANIELS MD [ACTIVE STAFF] - 05/30/19 11:00 am Prescriptions: Lansoprazole [Prevacid] 30 mg PO BID #60 Home Medications: Aspirin [Adult Low Dose Aspirin EC] 81 mg PO DAILY 05/23/19 Atorvastatin Calcium [Lipitor 80 mg Tablet] 80 mg PO QHS 05/23/19 Carvedilol [Coreg 12.5 mg Tablet] 12.5 mg PO QAM 05/23/19 Carvedilol [Coreg 25 mg Tablet] 25 mg PO QHS 05/23/19 Cetirizine HCl [Zyrtec] 10 mg PO DAILY 05/23/19 Cholecalciferol (Vitamin D3) [Vitamin D3 1000 Unit Tablet] 1,000 unit PO DAILY 05/23/19 Cyanocobalamin (Vitamin B-12) [Vitamin B12] 2,500 mcg SL DAILY 05/23/19 Escitalopram Oxalate [Lexapro] 10 mg PO QHS 05/23/19 Levothyroxine Sodium 88 mcg PO Q6AM 05/23/19 Lisinopril [Prinivil 40 mg Tablet] 40 mg PO QHS 05/23/19 Multivitamin [One-Daily Multi-Vitamin] 1 each PO DAILY 05/23/19 Ranolazine [Ranexa 500 mg Tab.sr] 500 mg PO Q12 05/23/19 Ticagrelor [Brilinta 90 mg Tablet] 90 mg PO BID 05/23/19 Acetaminophen [Tylenol 325 mg Tablet] 650 mg PO Q4HP PRN tablet 05/24/19 Lansoprazole [Prevacid] 30 mg PO BID #60 05/24/19 History of Present Illiness History of Present Illness: Per H&P by Dr. Wiley: ANUPAM PEACE is a 63 year old female with a past medical history of diabetes, gastric bypass, peptic ulcer, coronary artery disease with stent on Brilinta and aspirin who presents with 2 hours of retrosternal chest pain aching in nature radiating to the left shoulder occurring at rest. It was increasing intensity with exertion alleviated by nitroglycerin and the pain resembled prior [place]. In the emergency room she is found to have hypertensive urgency in the 190 systolic range. She denies recent change in medication regiment but admits to exceptional social stressors as her son 2 weeks ago and is undergoing an eminent move and marriage. She denies excessive caffeine, energy drinks or supplements. Her last Cardiolite stress test was 2 years ago. Her rv service technician is Dr. Daniels. Hospital Course Hospital Course: Patient was admitted to the medical floor and continuous cardiac telemetry; she remained in normal sinus rhythm throughout her admission. Serial troponins were monitored; negative x3. A1c is 6.4, TSH is normal, lipid panel is acceptable. The patient was started on twice daily Protonix with complete resolution of her chest discomfort. Blood pressure control was obtained through resumption of her home medication regiment. Her primary rv service technician was consulted and did clear the patient for discharge to home with outpatient follow-up. We did discuss her acute grief reaction (recent of immediate family member) and life stressors. Offered to provide prescriptions for SSRI and/or anxiety medications; patient declines at this time. The patient is discharged home in stable condition. At time of discharge, the patient is asymptomatic and ambulatory on room air. She is instructed to follow-up with her primary care provider, rv service technician, and wireless sales representative as scheduled. She is instructed to take her medications as prescribed and to return to the emergency department as needed for any concerning symptoms. Physical Exam Vital Signs: Temp Pulse Resp BP Pulse Ox 98.5 F 50 L 17 159/71 H 98 05/24/19 12:50 05/24/19 12:50 05/24/19 12:50 05/24/19 12:50 05/24/19 12:50 Intake & Output 05/23/19 05/24/19 05/25/19 06:59 06:59 06:59 Intake Total 260 Balance 260 Weight 68.674 kg 69.5 kg General appearance: PRESENT: no acute distress, well-developed, well-nourished Head exam: PRESENT: atraumatic, normocephalic Eye exam: PRESENT: conjunctiva pink, EOMI, PERRLA. ABSENT: scleral icterus Ear exam: PRESENT: normal external ear exam Mouth exam: PRESENT: moist, tongue midline Neck exam: ABSENT: carotid bruit, JVD, lymphadenopathy, thyromegaly Respiratory exam: PRESENT: clear to auscultation chetna. ABSENT: rales, rhonchi, wheezes Cardiovascular exam: PRESENT: RRR. ABSENT: diastolic murmur, rubs, systolic murmur Pulses: PRESENT: normal dorsalis pedis pul Vascular exam: PRESENT: normal capillary refill GI/Abdominal exam: PRESENT: normal bowel sounds, soft. ABSENT: distended, guarding, mass, organolmegaly, rebound, tenderness Rectal exam: PRESENT: deferred Extremities exam: PRESENT: full ROM. ABSENT: calf tenderness, clubbing, pedal edema Neurological exam: PRESENT: alert, awake, oriented to person, oriented to place, oriented to time, oriented to situation, CN II-XII grossly intact. ABSENT: motor sensory deficit Psychiatric exam: PRESENT: appropriate affect, normal mood. ABSENT: homicidal ideation, suicidal ideation Skin exam: PRESENT: dry, intact, warm. ABSENT: cyanosis, rash Results Laboratory Results: WBC 3.7 10^3/uL (4.0-10.5) L 05/24/19 09:51 RBC 4.39 10^6/uL (3.72-5.28) 05/24/19 09:51 Hgb 12.2 g/dL (12.0-15.5) 05/24/19 09:51 Hct 36.9 % (36.0-47.0) 05/24/19 09:51 MCV 84 fl (80-97) 05/24/19 09:51 MCH 27.9 pg (27.0-33.4) 05/24/19 09:51 MCHC 33.2 g/dL (32.0-36.0) 05/24/19 09:51 RDW 14.3 % (11.5-14.0) H 05/24/19 09:51 Plt Count 175 10^3/uL (150-450) 05/24/19 09:51 Lymph % (Auto) 26.6 % (13-45) 05/23/19 01:00 Nicholas % (Auto) 14.1 % (3-13) H 05/23/19 01:00 Eos % (Auto) 4.2 % (0-6) 05/23/19 01:00 Baso % (Auto) 1.2 % (0-2) 05/23/19 01:00 Absolute Neuts (auto) 2.5 10^3/uL (1.7-8.2) 05/23/19 01:00 Absolute Lymphs (auto) 1.2 10^3/uL (0.5-4.7) 05/23/19 01:00 Absolute Monos (auto) 0.7 10^3/uL (0.1-1.4) 05/23/19 01:00 Absolute Eos (auto) 0.2 10^3/uL (0.0-0.6) 05/23/19 01:00 Absolute Basos (auto) 0.1 10^3/uL (0.0-0.2) 05/23/19 01:00 Seg Neutrophils % 53.9 % (42-78) 05/23/19 01:00 Sodium 141.5 mmol/L (137-145) 05/23/19 01:00 Potassium 3.7 mmol/L (3.6-5.0) 05/23/19 01:00 Chloride 105 mmol/L (98-107) 05/23/19 01:00 Carbon Dioxide 27 mmol/L (22-30) 05/23/19 01:00 Anion Gap 10 (5-19) 05/23/19 01:00 BUN 17 mg/dL (7-20) 05/23/19 01:00 Creatinine 0.75 mg/dL (0.52-1.25) 05/23/19 01:00 Est GFR ( Amer) > 60 (>60) 05/23/19 01:00 Est GFR (MDRD) Non-Af > 60 (>60) 05/23/19 01:00 Glucose 130 mg/dL (75-110) H 05/23/19 01:00 Hemoglobin A1c % 6.4 % (4.7-6.0) H 05/23/19 01:00 Calcium 9.5 mg/dL (8.4-10.2) 05/23/19 01:00 Total Bilirubin 0.5 mg/dL (0.2-1.3) 05/23/19 01:00 Direct Bilirubin 0.1 mg/dL (0.0-0.4) 05/23/19 01:00 Neonat Total Bilirubin Not Reportable 05/23/19 01:00 Neonat Direct Bilirubin Not Reportable 05/23/19 01:00 Neonat Indirect Bili Not Reportable 05/23/19 01:00 AST 25 U/L (14-36) 05/23/19 01:00 ALT 18 U/L (<35) 05/23/19 01:00 Alkaline Phosphatase 90 U/L (38-126) 05/23/19 01:00 Creatine Kinase 74 U/L (30-135) 05/23/19 01:00 CK-MB (CK-2) 1.21 ng/mL (<4.55) 05/23/19 01:00 Troponin I < 0.012 ng/mL 05/23/19 09:30 NT-Pro-B Natriuret Pep 170 pg/mL (5-900) 05/23/19 01:00 Total Protein 7.0 g/dL (6.3-8.2) 05/23/19 01:00 Albumin 4.3 g/dL (3.5-5.0) 05/23/19 01:00 Triglycerides 69 mg/dL (<150) 05/23/19 06:34 Cholesterol 117.85 mg/dL (0-200) 05/23/19 06:34 LDL Cholesterol Direct 55 mg/dL (<100) 05/23/19 06:34 VLDL Cholesterol 14.0 mg/dL (10-31) 05/23/19 06:34 HDL Cholesterol 57 mg/dL (>40) 05/23/19 06:34 TSH 1.18 uIU/mL (0.47-4.68) 05/23/19 01:00 05/23/19 05/23/19 05/23/19 01:00 01:00 06:34 CK-MB (CK-2) 1.21 Troponin I < 0.012 < 0.012 NT-Pro-B Natriuret Pep 170 05/23/19 09:30 CK-MB (CK-2) Troponin I < 0.012 NT-Pro-B Natriuret Pep Impressions: Chest X-Ray 05/23/19 00:49 IMPRESSION: No acute cardiopulmonary findings. Plan Plan of Treatment: The patient is discharged home in stable condition. She is advised to follow-up with her primary care provider within 1 week, Dr. Mora as scheduled on 06/04/2019, and Dr. Daniels as scheduled on 05/30/2019. She is instructed to eat a cardiac diet and take her medications as prescribed. She is encouraged to return to emergency department as needed for concerning symptoms. Stroke Is this a Stroke Patient?: No Acute Heart Failure - Is this a Heart Failure Patient?: No
[2019-05-24] MEDS ORDERED: ESCITALOPRAM OXALATE 10 MG TABLET PO SCH (22:00)
== END 2019-05-24 13:42 | disposition home or self-care (01) ==
LOC: ER 00:40 → INTOOBSV 02:53 → EH 02:53 → UNDOADMIN 02:55 → EH 02:55 → 4W 10:02 → 5 16:38
PROVIDERS: ADMIT Internal Medicine; ATTEND Internal Medicine
DX: R07.89 Other chest pain (principal); I16.0 Hypertensive urgency; F43.21 Adjustment disorder with depressed mood; I25.10 Atherosclerotic heart disease of native coronary artery without angina pectoris; K21.9 Gastro-esophageal reflux disease without esophagitis; E78.5 Hyperlipidemia, unspecified; R11.0 Nausea; I25.2 Old myocardial infarction; Z79.899 Other long term (current) drug therapy; Z79.82 Long term (current) use of aspirin; Z98.84 Bariatric surgery status; Z95.5 Presence of coronary angioplasty implant and graft; Z87.11 Personal history of peptic ulcer disease; Z63.4 Disappearance and death of family member; Z90.49 Acquired absence of other specified parts of digestive tract; Z82.49 Family history of ischemic heart disease and other diseases of the circulatory system; Z73.3 Stress, not elsewhere classified; Z59.8 Other problems related to housing and economic circumstances; Z98.0 Intestinal bypass and anastomosis status
CPT/HCPCS: 93005 ×3; 99285; 96374; 36415 ×2; 82553; 82550; 84443; 85025; 85027; 80053; 84484; 83036; 80061; 83880; 71045; 93010 ×2; G0378 ×3; J3490 ×7

== ENCOUNTER → 2020-06-03 | Outpatient (CLI) | payer BC ==
[2020-06-03 13:42] VITALS: BP 134/66
--- NOTE | 2020-06-03 13:42 | ER RDC ASSESSMENT REPORT ---
Intake - In the Last 14 days Have you traveled outside [place]?: No Have you been in close contact with someone CONFIRMED: Yes Worked in Healthcare?: No - Symptoms Subjective Fever([place] feverish): No Chills: No Muscule Aches: No Runny Nose: No Sore Throat: No Cough (New or worsening chronic cough): No Shortness of breath: No Nausea or Vomiting: No Headache: No Abdominal Pain: No Diarrhea(3 or more loose stools in last 24 hours): No - Do you have any of the following Chronic lung disease: Asthma or emphysema or COPD: No Cystic Fibrosis: No Diabetes: Yes High Blood Pressure: Yes Cardiovascular Disease: No Chronic Kidney Disease: No Chronic Liver Disease: No Chronic blood disorder like Sickle Cell Disease: No Weak immune system due to disease or medication: No Neurologic condition that limits movement: No Developmental delay - Moderate to Severe: No Recent (within past 2 weeks) or current : No Morbid Obesity (>100 pounds over ideal weight): No - Objective Temperature: 98.0 F Pulse Rate: 66 Respiratory Rate: 16 Blood Pressure: 134/66 O2 Sat by Pulse Oximetry: 96 Objective: Given above, testing performed: covid Disposition: Home; Selfcare General - General Stated Complaint: covid testing Mode of Arrival: Ambulatory Information source: Patient - HPI Notes: Patient presents to clinic for COVID-19 testing after coming in close contact with another COVID 19 positive individual. Patient is asymptomatic. They deny any cough, shortness of breath, fever, chills, muscle aches, rhinorrhea, sore throat, nausea or vomiting, headache, abdominal pain or diarrhea. Patient has no acute medical concerns. - Related Data Allergies/Adverse Reactions: coconut Allergy (Intermediate, Verified 08/01/18 10:25) THROAT SWELLING, HARD TO BREATHE Past Medical History - General Information source: Patient - Social History Smoking Status: Former Smoker Family History: CAD, CVA, DM, Hyperlipidemia, Hypertension, Malignancy, Thyroid Disfunction - Past Medical History Cardiac Medical History: Reports: Hx Coronary Artery Disease, Hx Heart Attack - 2011,JUL 2017, Hx Hypercholesterolemia, Hx Hypertension Pulmonary Medical History: Reports: None Denies: Hx Asthma, Hx Bronchitis, Hx COPD, Hx Pneumonia EENT Medical History: Reports: None Neurological Medical History: Reports: None. Denies: Hx Cerebrovascular Accident, Hx Seizures Endocrine Medical History: Reports: Hx Diabetes Mellitus Type 1, Hx Diabetes Mellitus Type 2 Renal/ Medical History: Reports: None. Denies: Hx Peritoneal Dialysis Malignancy Medical History: Reports: None GI Medical History: Reports: Hx Gastroesophageal Reflux Disease, Hx Ulcer - AT ANASTOMOSIS SINCE GASTRIC BYPASS . Denies: Hx Hepatitis, Hx Hiatal Hernia Musculoskeletal Medical History: Reports None, Denies Hx Arthritis Skin Medical History: Reports None Psychiatric Medical History: Reports: Hx Depression Traumatic Medical History: Reports: None Infectious Medical History: Reports: None. Denies: Hx Hepatitis Past Surgical History: Reports: Hx Abdominal Surgery - gastric bypass, Hx Bowel Surgery - gastric bypass, Hx Cardiac Catheterization - stents, Hx Cholecystect carl, Hx Coronary Stent - 2002, Hx Gastric Bypass Surgery, Hx Tubal Ligation. Denies: Hx Hysterectomy, Hx Mastectomy, Hx Open Heart Surgery - CATHS, Hx Pacemaker Physical Exam - General General appearance: Appears well, Alert In distress: None Notes: PHYSICAL EXAMINATION: GENERAL: Well-appearing and in no acute distress. HEAD: Atraumatic, normocephalic. EYES: sclera anicteric, conjunctiva are normal. ENT: nares patent. Moist mucous membranes. NECK: Normal range of motion, supple without lymphadenopathy. LUNGS: No increased work of breathing. Lung sounds CTAB and equal. No wheezes rales or rhonchi. HEART: Regular rate and rhythm without murmurs. ABDOMEN: Soft, nontender, normal bowel sounds, no guarding. EXTREMITIES: Normal range of motion, no pitting edema. No cyanosis. NEUROLOGICAL: A&O x 3. Normal speech. PSYCH: Normal mood, normal affect. SKIN: Warm, Dry, normal turgor, no rashes or lesions noted Patient Education/Counseling Counseling/Education: Patient presents for COVID 19 testing after close exposure to another person who has tested positive for COVID 19. Patient is asymptomatic at this time. Patient does not have emergency worrying symptoms such as difficulty breathing, shortness of breath, chest pain, pressure, confusion or cyanosis. Patient appears suitable for discharge as vital signs are stable and patient is nontoxic in appearance. Good return precautions have been discussed with patient, patient verbalized understanding and is agreeable with discharge plan of care at this time. Guidance for worsening S/SX: As a person under investigation for Covid 19, the [facility], division of public health advises you to adhere to the following guidance until your test results are reported to you. If your test result is positive, you will receive additional information from your provider and your local health department at that time. Remain at home until you are cleared by the health provider or public health authorities. Keep a log of visitors to your home, notify any visitors to your home of your isolation status. If you plan to move to a new address or leave the county, notify the local health department in your County. Call your doctor or seek care if you have an urgent medical need. Before seeking medical care, call ahead to get instructions from the provider before arriving at the medical office clinic or hospital. Notify them that you are being tested for the virus that causes Covid 19 so that arrangements can be made, as necessary, to prevent transmission to others in the healthcare setting. Next, notify the local health department in your county. If a medical emergency arises and you need to call 911, inform the first responders that you are being tested for the virus that causes Covid 19. Next, notify the local health department in your county. RDC Discharge - Discharge Clinical Impression: Encounter for screening laboratory testing for COVID-19 virus in asymptomatic patient Condition: Good Disposition: Home; Selfcare
== END ==
LOC: RDC 12:07
PROVIDERS: ATTEND Registered Nurse
DX: Z20.828 Contact with and (suspected) exposure to other viral communicable diseases (principal); E11.9 Type 2 diabetes mellitus without complications; I10 Essential (primary) hypertension; I25.10 Atherosclerotic heart disease of native coronary artery without angina pectoris; K21.9 Gastro-esophageal reflux disease without esophagitis; I25.2 Old myocardial infarction; Z87.891 Personal history of nicotine dependence; Z91.018 Allergy to other foods
CPT/HCPCS: 99201; 99211; U0003; C9803; 87635